=== PATIENT | female | born 1955 | race African-American/Black ===

== ENCOUNTER 2016-10-21 10:20 | Emergency (ER) | payer BC ==
[2016-10-21] MEDS ORDERED: OXYCODONE-ACETAMINOPHEN 5-325 MG TABLET PO ONE (11:08)
--- NOTE | 2016-10-21 11:50 | RADIOLOGY REPORT (SQ) ---
EXAM DESCRIPTION: HAND RIGHT 3 VIEWS COMPLETED DATE/TIME: 10/21/2016 11:38 am REASON FOR STUDY: pain COMPARISON: None. EXAM PARAMETERS: NUMBER OF VIEWS: Three views. TECHNIQUE: AP, lateral and oblique radiographic images acquired of the right hand. LIMITATIONS: None. FINDINGS: MINERALIZATION: Normal. BONES: No acute fracture or dislocation. No worrisome bone lesions. No significant osteophytes. JOINTS: No erosions. No lukasz-articular osteopenia. Chondrocalcinosis. SOFT TISSUES: No swelling. No calcifications. OTHER: No other significant finding. IMPRESSION: CHONDROCALCINOSIS. OTHERWISE UNREMARKABLE STUDY. TECHNICAL DOCUMENTATION: JOB ID: [id number] [employer] All Rights Reserved
--- NOTE | 2016-10-21 12:39 | ER Document Report ---
ED Hand/Wrist Injury - General Chief Complaint: Hand Pain Stated Complaint: RIGHT HAND/ARM PAIN Time Seen by Provider: 10/21/16 11:02 Notes: 61 yo female c/o pain, redness and swelling to right wrist x 4 days. no trauma , no break in skin. no previous similar pain. TRAVEL OUTSIDE OF THE [place] IN LAST 30 DAYS: No - HPI Injury to: Hand Onset: Just prior to arrival Where: Home Timing: Constant Quality of pain: Sharp, Throbbing Context: Swelling - Related Data Allergies/Adverse Reactions: No Known Allergies Allergy (Verified 10/21/16 10:28) Past Medical History - General Information source: Patient - Social History Smoking Status: Never Smoker Chew tobacco use (# tins/day): No Frequency of alcohol use: None Drug Abuse: None Lives with: Family Family History: Reviewed & Not Pertinent Patient has suicidal ideation: No Patient has homicidal ideation: No - Past Medical History Cardiac Medical History: Reports: Hx Hypertension - no medications Renal/ Medical History: Reports: Hx End Stage Renal Disease - S/P TRANSPLANT 2003. Denies: Hx Peritoneal Dialysis Past Surgical History: Reports: Hx Kidney (Renal Surgery) - TRANSPLANT 2003 - Immunizations Hx Diphtheria, Pertussis, Tetanus Vaccination: Yes Review of Systems - Review of Systems Constitutional: No symptoms reported EENT: No symptoms reported Cardiovascular: No symptoms reported Respiratory: No symptoms reported Gastrointestinal: No symptoms reported Genitourinary: No symptoms reported Female Genitourinary: No symptoms reported Musculoskeletal: See HPI Skin: No symptoms reported Hematologic/Lymphatic: No symptoms reported Neurological/Psychological: No symptoms reported Physical Exam - Vital signs Vitals: Temp Pulse Resp BP Pulse Ox 98.2 F 60 18 145/65 H 100 10/21/16 10:29 10/21/16 10:29 10/21/16 10:29 10/21/16 10:29 10/21/16 10:29 Interpretation: Normal - General General appearance: Appears well, Alert - HEENT Head: Normocephalic, Atraumatic Eyes: Normal Pupils: PERRL - Respiratory Respiratory status: No respiratory distress Chest status: Nontender Breath sounds: Normal Chest palpation: Normal - Cardiovascular Rhythm: Regular Heart sounds: Normal auscultation Murmur: No - Abdominal Inspection: Normal Distension: No distension Bowel sounds: Normal Tenderness: Nontender Organomegaly: No organomegaly - Back Back: Normal, Nontender - Extremities General lower extremity: Normal inspection, Nontender, Normal color, Normal ROM , Normal temperature, Normal weight bearing. No: Suraj's sign Wrist: Tender - focal pain, redness and swelling to right mid dorsal wrist. distal SMC intact - Neurological Neuro grossly intact: Yes Cognition: Normal Orientation: AAOx4 Tia Coma Scale Eye Opening: Spontaneous [place] Coma Scale Verbal: Oriented Tia Coma Scale Motor: Obeys Commands Tia Coma Scale Total: 15 Speech: Normal Motor strength normal: LUE, RUE, LLE, RLE Sensory: Normal - Psychological Associated symptoms: Normal affect, Normal mood - Skin Skin Temperature: Warm Skin Moisture: Dry Skin Color: Normal Course - Re-evaluation Re-evalutation: 10/21/16 12:37 xray negative. uric acid 7.0. results reviewed with patient. H&P c/w gout. will treat with colcrys and short Rx of pain medication. pt instructed to follow up with primary care. pt agreeable with plan and stable for discharge - Vital Signs Vital signs: Temp Pulse Resp BP Pulse Ox 98.2 F 60 18 145/65 H 100 10/21/16 10:29 10/21/16 10:29 10/21/16 10:29 10/21/16 10:29 10/21/16 10:29 Discharge - Discharge Clinical Impression: Gout of right hand Qualifiers: Gout etiology: unspecified cause Chronicity: acute Qualified Code(s): M10.9 - Gout, unspecified Condition: Stable Disposition: HOME, SELF-CARE Instructions: Gout ([facility]), Gout Diet ([facility]), Oral Narcotic Medication ([facility]), Colchicine ([facility]), Anti-Inflammatory Medication ([facility]) Additional Instructions: Your lab work and physical exam are consistant with a gout attack Take medication as prescribed and follow up with primary care for further evaluation and treatment Prescriptions: Colchicine [Colcrys 0.6 mg Tablet] 0.6 mg PO ASDIR PRN #20 tablet PRN Reason: Oxycodone HCl/Acetaminophen [Percocet 5-325 mg Tablet] 1 tab PO ASDIR PRN #25 tablet PRN Reason: Forms: Elevated Blood Pressure
[2016-10-21 12:59] VITALS: BP 130/63
== END 2016-10-21 12:55 | disposition home or self-care (01) ==
LOC: ER 10:20
DX: M10.9 Gout, unspecified (principal); M79.641 Pain in right hand; M79.601 Pain in right arm; M79.89 Other specified soft tissue disorders
CPT/HCPCS: 36415; 84550; 99284

== ENCOUNTER 2017-03-03 16:00 | Emergency (ER) | payer BC ==
--- NOTE | 2017-03-03 17:01 | ER Document Report ---
ED Medical Screen (RME) - General Chief Complaint: Abdominal Pain Stated Complaint: STOMACH PAIN Time Seen by Provider: 03/03/17 16:59 Notes: Patient says that she is feeling lightheaded. Patient has a history of a kidney transplant in 2003 and is on antirejection medications plus prednisone. She started having lower abdominal pains about 5 days ago. The pain score around into her back. She has felt constipated for the past 2-3 days. Also has a headache. Has not had a fever. No nausea or vomiting. Denies UTI symptoms. TRAVEL OUTSIDE OF THE [place] IN LAST 30 DAYS: No - Related Data Allergies/Adverse Reactions: No Known Allergies Allergy (Verified 03/03/17 16:25) Past Medical History - Social History Chew tobacco use (# tins/day): No Frequency of alcohol use: None Drug Abuse: None - Past Medical History Cardiac Medical History: Reports: Hx Hypertension - no medications Renal/ Medical History: Reports: Hx End Stage Renal Disease - S/P TRANSPLANT 2003. Denies: Hx Peritoneal Dialysis Musculoskeltal Medical History: Reports Hx Arthritis Past Surgical History: Reports: Hx Kidney (Renal Surgery) - TRANSPLANT 2003, Hx Tubal Ligation - Immunizations Hx Diphtheria, Pertussis, Tetanus Vaccination: Yes Physical Exam - Vital signs Vitals: Temp Pulse Resp BP Pulse Ox 97.8 F 63 16 174/81 H 100 03/03/17 16:25 03/03/17 16:25 03/03/17 16:25 03/03/17 16:25 03/03/17 16:25 Course - Vital Signs Vital signs: Temp Pulse Resp BP Pulse Ox 97.8 F 63 16 174/81 H 100 03/03/17 16:25 03/03/17 16:25 03/03/17 16:25 03/03/17 16:25 03/03/17 16:25
[2017-03-03 17:26] LABS: ABSOLUTE LYMPHOCYTES (AUTO) 0.6 10^3/uL (0.5-4.7); ABSOLUTE MONOCYTES (AUTO) 0.3 10^3/uL (0.1-1.4); ABSOLUTE NEUT (AUTO) 5.3 10^3/uL (1.7-8.2); BASOPHILS % (AUTO) 0.4 % (0-2); EOSINOPHILS % (AUTO) 0.3 % (0-6); HEMATOCRIT 36.2 % (36.0-47.0); HEMOGLOBIN 11.8 g/dL (12.0-15.5); HGB HCT DIFFERENCE -0.8; LYMPHOCYTES % (AUTO) 10.2 % (13-45); MEAN CORPUSCULAR HEMOGLOBIN 30.1 pg (27.0-33.4); MEAN CORPUSCULAR HGB CONC 32.7 g/dL (32.0-36.0); MEAN CORPUSCULAR VOLUME 92 fl (80-97); MONOCYTES % (AUTO) 4.7 % (3-13); RED BLOOD COUNT 3.93 10^6/uL (3.72-5.28); SEGMENTED NEUTROPHILS % (AUTO) 84.4 % (42-78); WHITE BLOOD COUNT 6.3 10^3/uL (4.0-10.5)
[2017-03-03 17:28] LABS: APPEARANCE,URINE CLEAR; BILIRUBIN,URINE NEGATIVE (NEGATIVE); GLUCOSE, URINE NEGATIVE (NEGATIVE); KETONES,URINE NEGATIVE (NEGATIVE); LEUKOCYTE ESTERASE,URINE NEGATIVE (NEGATIVE); NITRITE,URINE NEGATIVE (NEGATIVE); PROTEIN,URINE NEGATIVE (NEGATIVE); UROBILINOGEN,URINE NEGATIVE mg/dL (<2.0)
[2017-03-03 17:46] LABS: ALANINE AMINOTRANSFERASE 24 U/L (9-52); ALBUMIN 4.8 g/dL (3.5-5.0); ALKALINE PHOSPHATASE 105 U/L (38-126); ANION GAP 16 (5-19); ASPARTATE AMINO TRANSFERASE 18 U/L (14-36); BILIRUBIN,DIRECT 0.4 mg/dL (0.0-0.4); BILIRUBIN,TOTAL 0.6 mg/dL (0.2-1.3); BLOOD UREA NITROGEN 23 mg/dL (7-20); CALCIUM 11.1 mg/dL (8.4-10.2); CARBON DIOXIDE 21 mmol/L (22-30); CHLORIDE 108 mmol/L (98-107); CREATININE RESULT 1.16 mg/dL (0.52-1.25); GLUCOSE 101 mg/dL (75-110); LIPASE 96.6 U/L (23-300); POTASSIUM 4.4 mmol/L (3.6-5.0); SODIUM 145.1 mmol/L (137-145); TOTAL PROTEIN 8.5 g/dL (6.3-8.2)
--- NOTE | 2017-03-03 18:26 | ER Document Report ---
ED General - General Chief Complaint: Abdominal Pain Stated Complaint: STOMACH PAIN Time Seen by Provider: 03/03/17 16:59 Mode of Arrival: Ambulatory Information source: Patient Notes: 61-year-old female history of kidney transplant presents with complaints of constipation abdominal pain. Patient notes concern for her kidney function. She denies any fevers or chills notes she is urinating with no difficulty, she denies any burning on urination, patient states overall she feels well. Notes that she has been taking laxatives but after she has diarrhea constipation comes back. Patient has not spoken with her transplant physician regarding this Patient has been taking her medications appropriately TRAVEL OUTSIDE OF THE [place] IN LAST 30 DAYS: No - HPI Onset: Last week Onset/Duration: Intermittent, Waxing and waning Quality of pain: Cramping Severity: Mild Pain Level: 1 Associated symptoms: Other Exacerbated by: Denies Relieved by: Denies Similar symptoms previously: Yes Recently seen / treated by doctor: No - Related Data Allergies/Adverse Reactions: No Known Allergies Allergy (Verified 03/03/17 16:25) Past Medical History - Social History Smoking Status: Never Smoker Cigarette use (# per day): No Chew tobacco use (# tins/day): No Smoking Education Provided: No Frequency of alcohol use: None Drug Abuse: None Family History: Reviewed & Not Pertinent Patient has suicidal ideation: No Patient has homicidal ideation: No - Past Medical History Cardiac Medical History: Reports: Hx Hypertension - no medications Renal/ Medical History: Reports: Hx End Stage Renal Disease - S/P TRANSPLANT 2003. Denies: Hx Peritoneal Dialysis Musculoskeltal Medical History: Reports Hx Arthritis Past Surgical History: Reports: Hx Kidney (Renal Surgery) - TRANSPLANT 2003, Hx Tubal Ligation - Immunizations Hx Diphtheria, Pertussis, Tetanus Vaccination: Yes Review of Systems - Review of Systems Notes: REVIEW OF SYSTEMS: CONSTITUTIONAL : Denies fever, chills, or sweats. Denies recent illness. EENT: Denies eye, ear, throat, or mouth pain or symptoms. Denies nasal or sinus congestion or discharge. Denies throat, tongue, or mouth swelling or difficulty swallowing. CARDIOVASCULAR: Denies chest pain. Denies palpitations or racing or irregular heart beat. Denies ankle edema. RESPIRATORY: Denies cough, cold, or chest congestion. Denies shortness of breath, difficulty breathing, or wheezing. GASTROINTESTINAL: Admits abdominal pain constipation GENITOURINARY: Denies difficulty urinating, painful urination, burning, frequency, blood in urine, or discharge. FEMALE GENITOURINARY: Denies vaginal bleeding, heavy or abnormal periods, irregular periods. Denies vaginal discharge or odor. MUSCULOSKELETAL: Denies back or neck pain or stiffness. Denies joint pain or swelling. SKIN: Denies rash, lesions or sores. HEMATOLOGIC : Denies easy bruising or bleeding. LYMPHATIC: Denies swollen, enlarged glands. NEUROLOGICAL: Denies confusion or altered mental status. Denies passing out or loss of consciousness. Denies dizziness or lightheadedness. Denies headache. Denies weakness or paralysis or loss of use of either side. Denies problems with gait or speech. Denies sensory loss, numbness, or tingling. Denies seizures. PSYCHIATRIC: Denies anxiety or stress. Denies depression, suicidal ideation, or homicidal ideation. ALL OTHER SYSTEMS REVIEWED AND NEGATIVE. PHYSICAL EXAMINATION: GENERAL: Well-appearing, well-nourished and in no acute distress. HEAD: Atraumatic, normocephalic. EYES: Pupils equal round and reactive to light, extraocular movements intact, conjunctiva are normal. ENT: Nares patent, oropharynx clear without exudates. Moist mucous membranes. NECK: Normal range of motion, supple without lymphadenopathy LUNGS: Breath sounds clear to auscultation bilaterally and equal. No wheezes rales or rhonchi. HEART: Regular rate and rhythm without murmurs ABDOMEN: Soft, nontender, nondistended abdomen. No guarding, no rebound. No masses appreciated. Female : deferred Musculoskeletal: Normal range of motion, no pitting or edema. No cyanosis. NEUROLOGICAL: Cranial nerves grossly intact. Normal speech, normal gait. Normal sensory, motor exams PSYCH: Normal mood, normal affect. SKIN: Warm, Dry, normal turgor, no rashes or lesions noted. Dictation was performed using [employer] voice recognition software Physical Exam - Vital signs Vitals: Temp Pulse Resp BP Pulse Ox 97.8 F 63 16 174/81 H 100 03/03/17 16:25 03/03/17 16:25 03/03/17 16:25 03/03/17 16:25 03/03/17 16:25 Course - Re-evaluation Re-evalutation: 03/04/17 02:35 Lab work imaging noted no significant abnormality, there was mild BUN elevation however creatinine is normal, I did give copies of results to the patient so she can take it to her physician so he can know exactly what the function is at this time. Otherwise appears to be secondary to constipation I did place the patient on MiraLAX and give very strict return precautions regarding fever worsening abdominal pain or any other concerns After performing a Medical Screening Examination, I estimate there is LOW risk for ACUTE APPENDICITIS, BOWEL OBSTRUCTION, ACUTE CHOLECYSTITIS, PERFORATED DIVERTICULITIS, INCARCERATED HERNIA, PANCREATITIS, PELVIC INFLAMMATORY DISEASE, PERFORATED ULCER, ECTOPIC , or TUBO-OVARIAN ABSCESS, thus I consider the discharge disposition reasonable. Also, there is no evidence or peritonitis , sepsis, or toxicity. I have reevaluated this patient multiple times and no significant life threatening changes are noted. The patient and I have discussed the diagnosis and risks, and we agree with discharging home with close follow-up with the understanding that symptoms and presentations can change. We also discussed returning to the Emergency Department immediately if new or worsening symptoms occur. We have discussed the symptoms which are most concerning (e.g., bloody stool, fever, changing or worsening pain, vomiting) that necessitate immediate return. - Vital Signs Vital signs: Temp Pulse Resp BP Pulse Ox 97.9 F 63 20 160/88 H 99 03/03/17 18:46 03/03/17 18:46 03/03/17 18:46 03/03/17 18:46 03/03/17 18:46 - Laboratory Result Diagrams: 03/03/17 17:10 03/03/17 17:10 Laboratory results interpreted by me: 03/03/17 03/03/17 03/03/17 17:10 17:10 17:10 Hgb 11.8 L RDW 15.0 H Seg Neutrophils % 84.4 H Lymphocytes % 10.2 L Sodium 145.1 H Chloride 108 H Carbon Dioxide 21 L BUN 23 H Est GFR ( Amer) 58 L Est GFR (Non-Af Amer) 48 L Calcium 11.1 H Total Protein 8.5 H Urine Blood SMALL H Discharge - Discharge Clinical Impression: Kidney transplant recipient HTN (hypertension) Qualifiers: Hypertension type: essential hypertension Qualified Code(s): I10 - Essential ( primary) hypertension Constipation Qualifiers: Constipation type: other constipation type Qualified Code(s): K59.09 - Other constipation Condition: Stable Disposition: HOME, SELF-CARE Additional Instructions: Please give your physician a copy of our lab results so he may see our results for today and compare to your previous labs Return immediately if there are any other concerns Prescriptions: Polyethylene Glycol 3350 [Miralax Powder 17 gm/Packet] 1 packet PO DAILY #7 pkg
[2017-03-03 18:47] VITALS: BP 160/88
== END 2017-03-03 18:48 | disposition home or self-care (01) ==
LOC: ER 16:00
DX: K59.00 Constipation, unspecified (principal); I10 Essential (primary) hypertension; R10.9 Unspecified abdominal pain; Z94.0 Kidney transplant status; Z98.51 Tubal ligation status
CPT/HCPCS: 36415; 80053; 81001; 83690; 85025; 99284

== ENCOUNTER 2018-01-09 09:06 | Emergency (ER) | payer SELFPAY ==
[2018-01-09 09:14] VITALS: BP 154/83
[2018-01-09] MEDS ORDERED: ONDANSETRON HCL INJ/PF 4 MG/2 ML SDV IV ONE (09:53)
[2018-01-09] MEDS ORDERED: NORMAL SALINE 1000 ML 1,000 ML IV ONE (09:53)
[2018-01-09] MEDS ORDERED: DICYCLOMINE HCL 20 MG TABLET PO ONE (09:55)
--- NOTE | 2018-01-09 09:58 | ER Document Report ---
ED GI/ - General Chief Complaint: Abdominal Pain Stated Complaint: ABDOMINAL PAIN, HEADACHE Time Seen by Provider: 01/09/18 09:48 Mode of Arrival: Ambulatory Information source: Patient Notes: Chief complaint: abdominal pain: History of complain:( obtained from----patient) 62 years old female presents today with since yesterday had a brown loose stool x2 today and another 3 stools which were brown in color crampy abdominal pain and nauseous and vomited couple of times. Clear fluid. No fever chills or other constitutional symptoms. She did not have a bowel movement prior to that for more than 3 days. She is a renal transplant patient. Onset: Gradual Duration: One day Severity: Mild Quality: Crampy Context: Possible constipation Exacerbating factor and relieving factors: REVIEW OF SYSTEMS: CONSTITUTIONAL : Denies fever, chills, or sweats. Denies recent illness. EENT: Denies eye, ear, throat, or mouth pain or symptoms. Denies nasal or sinus congestion or discharge. Denies throat, tongue, or mouth swelling or difficulty swallowing. CARDIOVASCULAR: Denies chest pain. Denies palpitations or racing or irregular heart beat. Denies ankle edema. RESPIRATORY: Denies cough, cold, or chest congestion. Denies shortness of breath, difficulty breathing, or wheezing. GASTROINTESTINAL: Denies distention. Denies nausea, vomiting, or diarrhea. Denies blood in vomitus, stools, or per rectum. Denies black, tarry stools. Denies constipation. GENITOURINARY: Denies difficulty urinating, painful urination, burning, frequency, blood in urine, or discharge. FEMALE GENITOURINARY: Denies vaginal bleeding, heavy or abnormal periods, irregular periods. Denies vaginal discharge or odor. MUSCULOSKELETAL: Denies back or neck pain or stiffness. Denies joint pain or swelling. SKIN: Denies rash, lesions or sores. HEMATOLOGIC : Denies easy bruising or bleeding. LYMPHATIC: Denies swollen, enlarged glands. NEUROLOGICAL: Denies confusion or altered mental status. Denies passing out or loss of consciousness. Denies dizziness or lightheadedness. Denies headache. Denies weakness or paralysis or loss of use of either side. Denies problems with gait or speech. Denies sensory loss, numbness, or tingling. Denies seizures. PSYCHIATRIC: Denies anxiety or stress. Denies depression, suicidal ideation, or homicidal ideation. ALL OTHER SYSTEMS REVIEWED AND NEGATIVE. PHYSICAL EXAMINATION: GENERAL: Well-appearing, well-nourished and in no acute distress. HEAD: Atraumatic, normocephalic. EYES: Pupils equal round and reactive to light, extraocular movements intact, conjunctiva are normal. ENT: Nares patent, oropharynx clear without exudates. Moist mucous membranes. NECK: Normal range of motion, supple without lymphadenopathy LUNGS: Breath sounds clear to auscultation bilaterally and equal. No wheezes rales or rhonchi. HEART: Regular rate and rhythm without murmurs ABDOMEN: Soft, nontender, nondistended abdomen. No guarding, no rebound. No masses appreciated. Female : deferred Musculoskeletal: Normal range of motion, no pitting or edema. No cyanosis. NEUROLOGICAL: Cranial nerves grossly intact. Normal speech, normal gait. Normal sensory, motor exams PSYCH: Normal mood, normal affect. SKIN: Warm, Dry, normal turgor, no rashes or lesions noted. Dictation was performed using [employer] voice recognition software TRAVEL OUTSIDE OF THE [place] IN LAST 30 DAYS: No - HPI Notes: 01/09/18 09:57 sharp - Related Data Allergies/Adverse Reactions: No Known Allergies Allergy (Verified 01/09/18 09:09) Past Medical History - General Information source: Patient - Social History Smoking Status: Never Smoker Cigarette use (# per day): No Chew tobacco use (# tins/day): No Smoking Education Provided: No Frequency of alcohol use: Rare Drug Abuse: None Lives with: Family Family History: Reviewed & Not Pertinent - Past Medical History Cardiac Medical History: Reports: Hx Hypertension - no medications Renal/ Medical History: Reports: Hx End Stage Renal Disease - S/P TRANSPLANT 2003. Denies: Hx Peritoneal Dialysis Musculoskeletal Medical History: Reports Hx Arthritis Past Surgical History: Reports: Hx Kidney (Renal Surgery) - TRANSPLANT 2003, Hx Tubal Ligation - Immunizations Hx Diphtheria, Pertussis, Tetanus Vaccination: Yes Review of Systems - Review of Systems Notes: ayad Physical Exam - Vital signs Vitals: Temp Pulse Resp BP Pulse Ox 97.9 F 69 14 154/83 H 98 01/09/18 09:13 01/09/18 09:13 01/09/18 09:13 01/09/18 09:13 01/09/18 09:13 - Notes Notes: sharp Course - Vital Signs Vital signs: Temp Pulse Resp BP Pulse Ox 97.9 F 69 14 154/83 H 98 01/09/18 09:13 01/09/18 09:13 01/09/18 09:13 01/09/18 09:13 01/09/18 09:13 - Laboratory Result Diagrams: 01/09/18 10:07 01/09/18 10:07 Laboratory results interpreted by me: 01/09/18 01/09/18 10:07 10:07 RDW 14.5 H Seg Neutrophils % 87.3 H Lymphocytes % 6.3 L Absolute Neutrophils 9.0 H Sodium 145.7 H BUN 38 H Creatinine 1.72 H Est GFR ( Amer) 37 L Est GFR (Non-Af Amer) 30 L Calcium 11.7 H Total Protein 9.8 H - Diagnostic Test Radiology reviewed: Reports reviewed - Radiologist reported as an nonspecific gas pattern Discharge - Discharge Clinical Impression: Frequent loose stools Qualifiers: Diarrhea type: unspecified type Qualified Code(s): R19.7 - Diarrhea, unspecified Retained feces Qualifiers: Constipation type: slow transit constipation Qualified Code(s): K59.01 - Slow transit constipation Condition: Fair Disposition: HOME, SELF-CARE Instructions: Abdominal Pain ([facility]), Constipation ([facility]) Prescriptions: Ondansetron [Zofran Odt 4 mg Tablet] 1 - 2 tab PO Q4HP PRN #10 tab.rapdis PRN Reason: Lactulose 20 gm PO BID #120 ml
[2018-01-09 10:21] LABS: ABSOLUTE LYMPHOCYTES (AUTO) 0.6 10^3/uL (0.5-4.7); ABSOLUTE MONOCYTES (AUTO) 0.6 10^3/uL (0.1-1.4); BASOPHILS % (AUTO) 0.2 % (0-2); EOSINOPHILS % (AUTO) 0.2 % (0-6); HEMATOCRIT 36.3 % (36.0-47.0); LYMPHOCYTES % (AUTO) 6.3 % (13-45); MEAN CORPUSCULAR VOLUME 91 fl (80-97); PLATELET COUNT 272 10^3/uL (150-450); RED BLOOD COUNT 3.99 10^6/uL (3.72-5.28); RED CELL DISTRIBUTION WIDTH 14.5 % (11.5-14.0); SEGMENTED NEUTROPHILS % (AUTO) 87.3 % (42-78); TOTAL CELLS COUNTED % (AUTO) 100 %; WHITE BLOOD COUNT 10.3 10^3/uL (4.0-10.5)
[2018-01-09 10:38] LABS: ALANINE AMINOTRANSFERASE 19 U/L (9-52); ALBUMIN 4.6 g/dL (3.5-5.0); ALKALINE PHOSPHATASE 96 U/L (38-126); ANION GAP 14 (5-19); ASPARTATE AMINO TRANSFERASE 20 U/L (14-36); BILIRUBIN,DIRECT 0.3 mg/dL (0.0-0.4); BILIRUBIN,TOTAL 0.6 mg/dL (0.2-1.3); BLOOD UREA NITROGEN 38 mg/dL (7-20); CALCIUM 11.7 mg/dL (8.4-10.2); CARBON DIOXIDE 25 mmol/L (22-30); CHLORIDE 107 mmol/L (98-107); GLUCOSE 99 mg/dL (75-110); LIPASE 85.2 U/L (23-300); POTASSIUM 3.6 mmol/L (3.6-5.0); SODIUM 145.7 mmol/L (137-145); TOTAL PROTEIN 9.8 g/dL (6.3-8.2)
--- NOTE | 2018-01-09 10:38 | RADIOLOGY REPORT (SQ) ---
EXAM DESCRIPTION: KUB/ABDOMEN (SINGLE VIEW) COMPLETED DATE/TIME: 01/09/2018 10:26 am REASON FOR STUDY: Abdominal pain COMPARISON: None. NUMBER OF VIEWS: One view. TECHNIQUE: Supine radiographic image of the abdomen acquired. LIMITATIONS: None. FINDINGS: BOWEL GAS PATTERN: Nonspecific bowel-gas pattern with scattered gas noted primarily and sm all bowel and stomach. Minimal colon gas. Findings of relatively gasless abdomen correlate with a h istory of vomiting and diarrhea. CALCIFICATIONS: No suspicious calcifications. SOFT TISSUES: There is evidence of soft tissue density in the pelvis which correlates with uterus an d bladder HARDWARE: None in the abdomen. BONES: No acute fracture. No worrisome bone lesions. OTHER: Surgical clips right hemipelvis secondary to renal transplant. IMPRESSION: Nonspecific bowel-gas pattern. TECHNICAL DOCUMENTATION: JOB ID: [id number] 2010 [employer]- All Rights Reserved Reading location - IP/workstation name: [email or web address]
== END 2018-01-09 12:43 | disposition home or self-care (01) ==
LOC: ER 09:06
DX: K59.01 Slow transit constipation (principal); R19.7 Diarrhea, unspecified; R10.9 Unspecified abdominal pain; R11.2 Nausea with vomiting, unspecified; Z94.0 Kidney transplant status; Z98.51 Tubal ligation status
CPT/HCPCS: 99284; 96361; 96374; 36415; 83690; 85025; 80053; 74018; J3490; J2405; J7030

== ENCOUNTER → 2019-11-02 | Outpatient (CLI) | payer BC ==
[2019-11-02 11:48] VITALS: BP 174/90
--- NOTE | 2019-11-02 11:48 | ER RDC ASSESSMENT REPORT ---
Intake - In the Last 14 days Have you traveled outside [place]?: No Have you been in close contact with someone CONFIRMED: Yes Worked in Healthcare?: No - Symptoms Subjective Fever(Miles feverish): No Chills: No Muscule Aches: No Runny Nose: No Sore Throat: No Cough (New or worsening chronic cough): No Shortness of breath: No Nausea or Vomiting: No Headache: No Abdominal Pain: No Diarrhea(3 or more loose stools in last 24 hours): No - Do you have any of the following Chronic lung disease: Asthma or emphysema or COPD: No Cystic Fibrosis: No Diabetes: No High Blood Pressure: Yes Cardiovascular Disease: Yes Chronic Kidney Disease: Yes Chronic Kidney Disease Comment: renal transplant 17 yr ago Chronic Liver Disease: No Chronic blood disorder like Sickle Cell Disease: No Weak immune system due to disease or medication: No Neurologic condition that limits movement: No Developmental delay - Moderate to Severe: No Recent (within past 2 weeks) or current : No Morbid Obesity (>100 pounds over ideal weight): No - Objective Temperature: 97.0 F Pulse Rate: 72 Respiratory Rate: 18 Blood Pressure: 174/90 - recheck 158/82 O2 Sat by Pulse Oximetry: 99 Objective: Given above, testing performed: covid Disposition: Home; Selfcare General - General Chief Complaint: Other Time Seen by Provider: 11/02/19 11:40 Mode of Arrival: Ambulatory Information source: Patient - [facility] Notes: Patient presents to clinic for COVID-19 testing after coming in close contact with another COVID 19 positive individual. Patient is asymptomatic. They deny any cough, shortness of breath, fever, chills, muscle aches, rhinorrhea, sore t hroat, nausea or vomiting, headache, abdominal pain or diarrhea. Patient has no acute medical concerns. - Related Data Allergies/Adverse Reactions: No Known Allergies Allergy (Verified 01/09/18 09:09) Home Medications: Hydralazine, enalapril, antirejection meds Past Medical History - General Information source: Patient - Social History Smoking Status: Never Smoker Family History: Reviewed & Not Pertinent - Past Medical History Cardiac Medical History: Reports: Hx Hypertension - no medications Pulmonary Medical History: Reports: None EENT Medical History: Reports: None Neurological Medical History: Reports: None Endocrine Medical History: Reports: None Renal/ Medical History: Reports: Hx End Stage Renal Disease - S/P TRANSPLANT 2003, Other - Renal transplant. Denies: Hx Peritoneal Dialysis Malignancy Medical History: Reports: None GI Medical History: Reports: None Musculoskeletal Medical History: Reports Hx Arthritis Skin Medical History: Reports None Psychiatric Medical History: Reports: None Traumatic Medical History: Reports: None Infectious Medical History: Reports: None Past Surgical History: Reports: Hx Kidney (Renal Surgery) - TRANSPLANT 2003, Hx Tubal Ligation Physical Exam - General General appearance: Appears well, Alert In distress: None Notes: PHYSICAL EXAMINATION: GENERAL: Well-appearing and in no acute distress. HEAD: Atraumatic, normocephalic. EYES: sclera anicteric, conjunctiva are normal. ENT: nares patent. Moist mucous membranes. NECK: Normal range of motion, supple without lymphadenopathy. LUNGS: No increased work of breathing. Lung sounds CTAB and equal. No wheezes rales or rhonchi. HEART: Regular rate and rhythm without murmurs. ABDOMEN: Soft, nontender, normal bowel sounds, no guarding. EXTREMITIES: Normal range of motion, no pitting edema. No cyanosis. NEUROLOGICAL: A&O x 3. Normal speech. PSYCH: Normal mood, normal affect. SKIN: Warm, Dry, normal turgor, no rashes or lesions noted Patient Education/Counseling Counseling/Education: Patient presents for COVID 19 testing after close exposure to another person who has tested positive for COVID 19. Patient is asymptomatic at this time. Patient does not have emergency worrying symptoms such as difficulty breathing, shortness of breath, chest pain, pressure, confusion or cyanosis. Patient appears suitable for discharge as vital signs are stable and patient is nontoxic in appearance. Good return precautions have been discussed with patient, patien t verbalized understanding and is agreeable with discharge plan of care at this time. Guidance for worsening S/SX: As a person under investigation for Covid 19, the [place] department of Health and Human Services, division of public health advises you to adhere to the following guidance until your test results are reported to you. If your test result is positive, you will receive additional information from your provider and your local health department at that time. Remain at home until you are cleared by the health provider or public health authorities. Keep a log of visitors to your home, notify any visitors to your home of your isolation status. If you plan to move to a new address or leave the county, notify the local health department in your County. Call your doctor or seek care if you have an urgent medical need. Before seeking medical care, call ahead to get instructions from the provider before arriving at the medical office clinic or hospital. Notify them that you are being tested for the virus that causes Covid 19 so that arrangements can be made, as necessary, to prevent transmission to others in the healthcare setting. Next, notify the local health department in your county. If a medical emergency arises and you need to call 911, inform the first responders that you are being tested for the virus that causes Covid 19. Next, notify the local health department in your county. RDC Discharge - Discharge Clinical Impression: Encounter for screening laboratory testing for COVID-19 virus in asymptomatic patient Condition: Good Disposition: Home; Selfcare
== END ==
LOC: RDC 10:51
PROVIDERS: ATTEND Registered Nurse
DX: Z20.828 Contact with and (suspected) exposure to other viral communicable diseases (principal)
CPT/HCPCS: 87635; C9803; 99201; 99211

== ENCOUNTER 2019-12-14 19:53 | Emergency (ER) | payer BC ==
--- NOTE | 2019-12-14 20:17 | ER Document Report ---
ED Medical Screen (RME) - General Chief Complaint: Mouth Problem Stated Complaint: SHAKING,FACIAL DROOP Time Seen by Provider: 12/14/19 20:05 Primary Care Provider: LUIS GARZA PA-C [Primary Care Provider] - Follow up as needed Mode of Arrival: Wheelchair Information source: Patient Notes: 64-year-old female presented to ED for complaint of feeling like she is talking funny and the face feels like her mouth feels funny. She had a partial thyroidectomy on December 02. Vital signs are stable. She is speaking in full sentences. There is no facial droop. There is no palmar drift. She has equal strength in both legs. She is very anxious. I did speak with Dr. hernandez he stated that she get a head and soft tissue neck CT as well as CBC and chemistry. She states she did have a kidney transplant and only has 1 kidney. We will not use contrast. I have greeted and performed a rapid initial assessment of this patient. A comprehensive ED assessment and evaluation of the patient, analysis of test results and completion of medical decision making process will be conducted by an additional ED providers. TRAVEL OUTSIDE OF THE [place] IN LAST 30 DAYS: No - Related Data Allergies/Adverse Reactions: No Known Allergies Allergy (Verified 01/09/18 09:09) Past Medical History - Social History Frequency of alcohol use: None Drug Abuse: None - Past Medical History Cardiac Medical History: Reports: Hx Hypertension - no medications Renal/ Medical History: Reports: Hx End Stage Renal Disease - S/P TRANSPLANT 2003. Denies: Hx Peritoneal Dialysis Musculoskeltal Medical History: Reports Hx Arthritis Past Surgical History: Reports: Hx Kidney (Renal Surgery) - TRANSPLANT 2003, Hx Tubal Ligation - Immunizations Hx Diphtheria, Pertussis, Tetanus Vaccination: Yes Physical Exam - Vital signs Vitals: Temp Pulse Resp BP Pulse Ox 98.4 F 76 20 162/84 H 100 12/14/19 19:57 12/14/19 19:57 12/14/19 19:57 12/14/19 19:57 12/14/19 19:57 Course - Vital Signs Vital signs: Temp Pulse Resp BP Pulse Ox 98.4 F 76 20 162/84 H 100 12/14/19 19:57 12/14/19 19:57 12/14/19 19:57 12/14/19 19:57 12/14/19 19:57 Doctor's Discharge - Discharge Referrals: LUIS GARZA PA-C [Primary Care Provider] - Follow up as needed
[2019-12-14 20:54] LABS: HEMATOCRIT 26.6 % (36.0-47.0); HEMOGLOBIN 8.7 g/dL (12.0-15.5); MEAN CORPUSCULAR HEMOGLOBIN 30.7 pg (27.0-33.4); MEAN CORPUSCULAR HGB CONC 32.7 g/dL (32.0-36.0); MEAN CORPUSCULAR VOLUME 94 fl (80-97); PLATELET COUNT 261 10^3/uL (150-450); RED BLOOD COUNT 2.84 10^6/uL (3.72-5.28); WHITE BLOOD COUNT 4.8 10^3/uL (4.0-10.5)
[2019-12-14 21:12] LABS: ALBUMIN 4.1 g/dL (3.5-5.0); ALKALINE PHOSPHATASE 91 U/L (38-126); ANION GAP 12 (5-19); ASPARTATE AMINO TRANSFERASE 16 U/L (14-36); BILIRUBIN,DIRECT 0.3 mg/dL (0.0-0.4); BILIRUBIN,TOTAL 0.4 mg/dL (0.2-1.3); BLOOD UREA NITROGEN 28 mg/dL (7-20); CARBON DIOXIDE 25 mmol/L (22-30); CHLORIDE 105 mmol/L (98-107); GLUCOSE 95 mg/dL (75-110); POTASSIUM 4.7 mmol/L (3.6-5.0); TOTAL PROTEIN 7.7 g/dL (6.3-8.2)
[2019-12-14 21:18] LABS: ABSOLUTE LYMPHOCYTES# (MANUAL) 0.7 10^3/uL (0.5-4.7); ABSOLUTE MONOCYTES # (MANUAL) 0.4 10^3/uL (0.1-1.4); BAND NEUTROPHILS % (MANUAL) 5 % (3-5); BASOPHILS % (MANUAL) 0 % (0-2); EOSINOPHILS % (MANUAL) 0 % (0-6); LYMPHOCYTES % (MANUAL) 14 % (13-45); METAMYELOCYTES % (MANUAL) 2 % (0-1); MONOCYTES % (MANUAL) 9 % (3-13); SEGMENTED NEUTROPHILS % (MAN) 70 % (42-78); TOTAL CELLS COUNTED 100
[2019-12-14 21:19] LABS: ANISOCYTOSIS SLIGHT; OVALOCYTES SLIGHT; PLATELET COMMENT ADEQUATE; POIKILOCYTOSIS SLIGHT; POLYCHROMASIA SLIGHT
[2019-12-14 21:22] LABS: CALCIUM 6.4 mg/dL (8.4-10.2)
--- NOTE | 2019-12-14 21:24 | RADIOLOGY REPORT (SQ) ---
CT HEAD WITHOUT IV CONTRAST HISTORY: Headache recent surgery. COMPARISON: None. TECHNIQUE: CT scan of the brain was performed without IV contrast. This exam was performed according to our departmental dose-optimization program, which includes automated exposure control, adjustment of the mA and/or kV according to patient size and/or use of iterative reconstruction technique. FINDINGS: There are scattered areas of hypoattenuation within the periventricular white matter, which likely represent chronic microvascular ischemia. No evidence of acute infarction, intracranial hemorrhage, extra-axial fluid collection, or midline shift. There is sinus mucosal disease in the bilateral frontal, ethmoid, and maxillary sinuses. No air-fluid levels are seen. The mastoids are also clear. No depressed skull fracture. IMPRESSION: 1. No acute intracranial findings. 2. Chronic microvascular ischemic disease. 3. Sites mucosal inflammatory disease.
--- NOTE | 2019-12-14 21:28 | RADIOLOGY REPORT (SQ) ---
EXAM DESCRIPTION: CT NECK WITHOUT IV CONTRAST COMPLETED DATE/TME: 12/14/2019 20:14 CLINICAL HISTORY: 64 years, Female, Headache recent surgery partial thyroidectomy COMPARISON: None. TECHNIQUE: Noncontrast CT of the neck was acquired. Coronal and sagittal reformations were created. Images stored on PACS. All CT scanners at this facility use dose modulation, iterative reconstruction, and/or weight based dosing when appropriate to reduce radiation dose to as low as reasonably achievable (ALARA). [facility]: Dose Right [facility]: CareDose [facility]: Dose Right [facility]: Teradose 4D [facility]: [employer] LIMITATIONS: None. FINDINGS: Limited evaluation of the chest reveals no suspicious finding. There are postsurgical changes of partial resection of the right thyroid lobe. Otherwise, the remainder of the thyroid gland appears normal in attenuation. Hypopharynx, oropharynx, and nasopharynx show no suspicious abnormality. Globes and orbits show no suspicious abnormality. Limited assessment of the brain parenchyma shows no suspicious finding. Bilateral parotid glands and left submandibular gland appear normal. The right submandibular gland appears asymmetrically smaller than the contralateral side. This is presumably developmental. No suspicious deep cervical lymphadenopathy is appreciated. Minimal calcifications are evident about the bilateral carotid bulbs. Bone windows show no destructive osseous lesions. However, there is mild mucosal thickening about both maxillary antra with additional mild opacity in the ethmoidal air cells and near complete opacification of the frontal sinuses. IMPRESSION: No acute abnormality within the neck. Mild pansinus disease. TECHNICAL DOCUMENTATION: Quality ID # 436: Final reports with documentation of one or more dose reduction techniques (e.g., Automated exposure control, adjustment of the mA and/or kV according to patient size, use of iterative reconstruction technique) copyright 2011 [employer]- All Rights Reserved
--- NOTE | 2019-12-14 23:27 | ER Document Report ---
ED General - General Chief Complaint: Mouth Problem Stated Complaint: SHAKING,FACIAL DROOP Time Seen by Provider: 12/14/19 20:05 Primary Care Provider: LUIS GARZA PA-C [Primary Care Provider] - Follow up as needed Mode of Arrival: Wheelchair TRAVEL OUTSIDE OF THE [place] IN LAST 30 DAYS: No - HPI Notes: 64-year-old female presents with cramping and numbness, mostly to her extremities. She also feels a sensation around her face and mouth, feels that she is talking funny. Patient underwent partial thyroidectomy on December 02 at [facility], she states that she believes this was for an overactive thyroid, she is not currently on any medication. She denies abdominal pain, no nausea/vomiting/diarrhea. Denies fever, chest pain or shortness of breath. - Related Data Allergies/Adverse Reactions: No Known Allergies Allergy (Verified 01/09/18 09:09) Past Medical History - General Information source: Patient - Social History Smoking Status: Never Smoker Frequency of alcohol use: None Drug Abuse: None Family History: Reviewed & Not Pertinent Patient has homicidal ideation: No - Past Medical History Cardiac Medical History: Reports: Hx Hypertension - no medications Renal/ Medical History: Reports: Hx End Stage Renal Disease - S/P TRANSPLANT 2003. Denies: Hx Peritoneal Dialysis Musculoskeletal Medical History: Reports Hx Arthritis Past Surgical History: Reports: Hx Kidney (Renal Surgery) - TRANSPLANT 2003, Hx Tubal Ligation - Immunizations Hx Diphtheria, Pertussis, Tetanus Vaccination: Yes Review of Systems - Review of Systems Constitutional: denies: Fever EENT: No symptoms reported Cardiovascular: denies: Chest pain Respiratory: denies: Short of breath Gastrointestinal: denies: Abdominal pain, Diarrhea, Nausea, Vomiting Genitourinary: denies: Dysuria Musculoskeletal: See HPI Skin: No symptoms reported Neurological/Psychological: Tingling Physical Exam - Vital signs Vitals: Temp Pulse Resp BP Pulse Ox 98.4 F 76 20 162/84 H 100 12/14/19 19:57 12/14/19 19:57 12/14/19 19:57 12/14/19 19:57 12/14/19 19:57 - General General appearance: Appears well, Alert In distress: None - HEENT Head: Normocephalic, Atraumatic Extraocular movements intact: Yes Pupils: PERRL Neck: Other - Surgical scar present, appears to be well-healing, no erythema or tenderness - Respiratory Breath sounds: Normal - Cardiovascular Rhythm: Regular Heart sounds: Normal auscultation Normal capillary refill: Yes - Abdominal Distension: No distension Tenderness: Nontender - Extremities General upper extremity: Normal ROM General lower extremity: Normal ROM. No: Edema - Neurological Neuro grossly intact: Yes Cognition: Normal Orientation: AAOx4 Notes: Face is symmetric and speech is clear Positive chvostek's sign Strength is 5/5 in the upper extremities, strength is 5/5 in lower extremities, sensation is grossly intact to all extremities - Psychological Associated symptoms: Normal affect - Skin Skin Temperature: Warm Course - Re-evaluation Re-evalutation: 64-year-old female status post partial thyroidectomy almost 2 weeks ago here for sensation of cramping. On exam she is nontoxic-appearing, afebrile. No gross neuro deficits, I do not think her presentation is consistent with stroke at this time. She had a laboratory evaluation from the [facility] which showed a calcium of 6. She is symptomatic with this and has physical exam findings. I will start with IV and oral calcium replacement, 1g calglu and 1g tums. Check PTH and vitamin D as well. Additionally through triage had CT head and CT soft tissue neck, both are negative for acute finding. 12/15/19 00:02 Given that she is recently post op, I have gone through the [facility] transfer center to have a page out to the [facility] surgery team to discuss patient. 12/15/19 00:[address] Washington Godinez from [facility], he has agreed to see the patient in the emergency department to further evaluate. I then discussed with the ED att ending Dr. Mims, she has accepted the patient in transfer. Patient and her son were updated at bedside. - Vital Signs Vital signs: Temp Pulse Resp BP Pulse Ox 98.9 F 76 18 166/86 H 96 12/14/19 23:31 12/14/19 19:57 12/15/19 00:03 12/15/19 00:03 12/15/19 00:03 - Laboratory Result Diagrams: 12/14/19 20:35 12/14/19 20:35 Laboratory results interpreted by me: 12/14/19 12/14/19 20:35 20:35 RBC 2.84 L Hgb 8.7 L Hct 26.6 L Metamyelocytes % 2 H BUN 28 H Creatinine 1.92 H Est GFR ( Amer) 32 L Est GFR (MDRD) Non-Af 26 L Calcium 6.4 L* - Diagnostic Test Radiology reviewed: Image reviewed, Reports reviewed - EKG Interpretation by Me Additional EKG results interpreted by me: EKG is interpreted by me. Sinus rhythm, rate 68. Slightly long QRS 126. QTc within normal limits. No ST elevation. Discharge - Discharge Clinical Impression: Hypocalcemia, Status post thyroidectomy, Renal transplant, status post Condition: Stable Disposition: [facility] Referrals: LUIS GARZA PA-C [Primary Care Provider] - Follow up as needed
[2019-12-14] MEDS ORDERED: CALCIUM GLUCONATE 1000 MG/10 ML INJ IV ONE (23:31)
[2019-12-14] MEDS ORDERED: CALCIUM CARBONATE 500 MG TAB.CHEW PO ONE (23:31)
[2019-12-15] MEDS ORDERED: CALCIUM GLUCONATE 1000 MG/10 ML INJ IV ONE (01:45)
[2019-12-15 03:32] VITALS: BP 173/86
[2019-12-15 03:33] LABS: ANION GAP 11 (5-19); BLOOD UREA NITROGEN 29 mg/dL (7-20); CARBON DIOXIDE 26 mmol/L (22-30); CHLORIDE 105 mmol/L (98-107); GLUCOSE 93 mg/dL (75-110); POTASSIUM 3.9 mmol/L (3.6-5.0)
[2019-12-15 04:00] LABS: CALCIUM 6.5 mg/dL (8.4-10.2)
--- NOTE | 2019-12-15 08:52 | EKG REPORT ---
SEVERITY:- ABNORMAL ECG - SINUS RHYTHM NONSPECIFIC INTRAVENTRICULAR CONDUCTION DELAY LEFT VENTRICULAR HYPERTROPHY ANTERIOR Q WAVES, POSSIBLY DUE TO LVH : Confirmed by: Zaheer Parker MD 15-Dec-2019 08:51:22
== END 2019-12-15 03:32 | disposition short-term general hospital (02) ==
LOC: ER 19:53
DX: E83.51 Hypocalcemia (principal); E89.0 Postprocedural hypothyroidism; Z94.0 Kidney transplant status; R29.810 Facial weakness; I10 Essential (primary) hypertension; Z98.890 Other specified postprocedural states
CPT/HCPCS: 93005; 99285; 96374; 36415; 85025; 80048; 80053; 82652; 82306; 83970; 70450; 70490; 93010; J0610

== ENCOUNTER 2020-02-16 13:19 | Emergency (ER) | payer BC ==
[2020-02-16] MEDS ORDERED: DEXAMETHASONE SOD PHOSPHATE INJ 4 MG/1 ML VIAL IM ONE (15:39)
[2020-02-16] MEDS ORDERED: HYDROCODONE/ACETAMINOPHEN 5-325 MG TABLET PO ONE (15:40)
--- NOTE | 2020-02-16 16:21 | ER Document Report ---
ED Medical Screen (RME) - General Chief Complaint: Back Pain Stated Complaint: BACK PAIN Time Seen by Provider: 02/16/20 15:23 Primary Care Provider: LUIS GARZA PA-C [Primary Care Provider] - Follow up as needed TRAVEL OUTSIDE OF THE [place] IN LAST 30 DAYS: No - HPI Notes: 02/16/20 15:40 64-year-old recipient of kidney transplant female presents to the emergency room today with lower back pain and weakness for the last 2 weeks it has become progressively worse. Reports pain is 5/5. Patient states she typically ambulates without any issues. Denies any fall or trauma. Denies any bowel or bladder dysfunction. Denies any fevers or chills. Has tried [id number] Tylenol and ibuprofen without relief. Patient denies radiation of her pain down her legs. I have greeted and performed a rapid initial assessment of this patient. A comprehensive ED assessment and evaluation of the patient, analysis of test results and completion of the medical decision making process will be conducted by additional ED providers. PHYSICAL EXAMINATION: GENERAL: Chronically ill malnourished and in no acute distress. CV: s1, s2 regular LUNGS: No respiratory distress Musculoskeletal: Normal range of motion. Patient in wheelchair. Required myself and registered nurse to try to assist patient out of wheelchair, patient unable to stand on her own due to weakness. Tenderness when palpated lumbar spine. No CVA tenderness appreciated bilaterally. NEUROLOGICAL: Normal speech, unable to stand on own. Weak SKIN: Warm, Dry, normal turgor, no rashes or lesions noted. - Related Data Allergies/Adverse Reactions: No Known Allergies Allergy (Verified 01/09/18 09:09) Past Medical History - Social History Frequency of alcohol use: None Drug Abuse: None - Past Medical History Cardiac Medical History: Reports: Hx Hypertension - no medications Renal/ Medical History: Reports: Hx End Stage Renal Disease - S/P TRANSPLANT 2003. Denies: Hx Peritoneal Dialysis Musculoskeltal Medical History: Reports Hx Arthritis Past Surgical History: Reports: Hx Kidney (Renal Surgery) - TRANSPLANT 2003, Hx Thyroid Surgery, Hx Tubal Ligation - Immunizations Hx Diphtheria, Pertussis, Tetanus Vaccination: Yes Physical Exam - Vital signs Vitals: Temp Pulse Resp BP Pulse Ox 98.2 F 81 16 127/67 H 100 02/16/20 13:35 02/16/20 13:35 02/16/20 13:35 02/16/20 13:35 02/16/20 13:35 Course - Vital Signs Vital signs: Temp Pulse Resp BP Pulse Ox 98.2 F 81 16 127/67 H 100 02/16/20 13:35 02/16/20 13:35 02/16/20 13:35 02/16/20 13:35 02/16/20 13:35 Doctor's Discharge - Discharge Referrals: LUIS GARZA PA-C [Primary Care Provider] - Follow up as needed
--- NOTE | 2020-02-16 16:23 | RADIOLOGY REPORT (SQ) ---
EXAM DESCRIPTION: L SPINE WHOLE IMAGES COMPLETED DATE/TIME: 02/16/2020 4:02 pm REASON FOR STUDY: lbp with weakness, unble to bear weight COMPARISON: None. NUMBER OF VIEWS: Five views including obliques. TECHNIQUE: AP, lateral, oblique, and sacral radiographic images acquired of the lumbar spine. LIMITATIONS: None. FINDINGS: MINERALIZATION: Normal. SEGMENTATION: Normal. No transitional anatomy. ALIGNMENT: Mild convex left scoliosis. VERTEBRAE: Maintained height. No fracture or worrisome bone lesion. DISCS: Preserved height. No significant osteophytes or end plate irregularity. POSTERIOR ELEMENTS: Pedicles and facets are intact. No pars defect or posterior arch defects. HARDWARE: None in the spine. PARASPINAL SOFT TISSUES: Normal. PELVIS: Intact as visualized. No fractures or worrisome bone lesions. SI joints intact. OTHER: No other significant finding. IMPRESSION: Mild scoliosis. TECHNICAL DOCUMENTATION: JOB ID: [id number] 2010 [employer]- All Rights Reserved Reading location - IP/workstation name: [email or web address]
--- NOTE | 2020-02-16 21:27 | ER Document Report ---
ED Neck/Back Problem - General Stated Complaint: BACK PAIN Time Seen by Provider: 02/16/20 15:23 Primary Care Provider: LUIS GARZA PA-C [Primary Care Provider] - Follow up as needed Mode of Arrival: Ambulatory Information source: Patient Notes: 02/16/20 15:25 - ED Nursing Note by JOÃO BLASGAIL Accroseanne Num: [id number] : 1955 Patient Age: 64 patient arrives to ED with c/o lower back pain that started x2 weeks prior. The patient denies any known injury or urinary symptoms. Pain worsens with movement. NAD, breathing is even and unlabored, speaking in complete and clear sentences. Initialized on 02/16/20 15:25 - END OF NOTE ED Medical Screen (Karly Perez) - General Chief Complaint: Back Pain Stated Complaint: BACK PAIN Time Seen by Provider: 02/16/20 15:23 Primary Care Provider: LUIS GARZA PA-C [Primary Care Provider] - Follow up as needed TRAVEL OUTSIDE OF THE U[place]. IN LAST 30 DAYS: No - HPI Notes: 02/16/20 15:40 64-year-old recipient of kidney transplant female presents to the emergency room today with lower back pain and weakness for the last 2 weeks it has become progressively worse. Reports pain is 5/5. Patient states she typically ambulates without any issues. Denies any fall or trauma. Denies any bowel or bladder dysfunction. Denies any fevers or chills. Has tried [id number] Tylenol and ibuprofen without relief. Patient denies radiation of her pain down her legs. MY NOTES 64 year old black female arrives with chief complaint of having 2-week history of low back pain that has been progressively getting worse. She denies any referral down her legs or in her bladder or pelvis. X-rays today reveal scoliosis in her lumbar area per radiology. Patient denies any heavy lifting bending or twisting problems. TRAVEL OUTSIDE OF THE [place] IN LAST 30 DAYS: No - HPI Patient complains to provider of: Lower back Onset: Last week Where: Home Onset: Sudden Timing: Worse Quality of pain: Achy Severity: Moderate Pain Level: 3 Recent injury: No Associated symptoms: Lower back pain Exacerbated by: Movement of trunk Similar symptoms previously: No Recently seen / treated by doctor: No - Related Data Allergies/Adverse Reactions: No Known Allergies Allergy (Verified 01/09/18 09:09) Past Medical History - Social History Smoking Status: Unknown if Ever Smoked Frequency of alcohol use: None Drug Abuse: None Family History: Reviewed & Not Pertinent - Past Medical History Cardiac Medical History: Reports: Hx Hypertension - no medications Renal/ Medical History: Reports: Hx End Stage Renal Disease - S/P TRANSPLANT 2003. Denies: Hx Peritoneal Dialysis Musculoskeletal Medical History: Reports Hx Arthritis Past Surgical History: Reports: Hx Kidney (Renal Surgery) - TRANSPLANT 2003, Hx Thyroid Surgery, Hx Tubal Ligation - Immunizations Hx Diphtheria, Pertussis, Tetanus Vaccination: Yes Review of Systems - Review of Systems Constitutional: See HPI, Malaise EENT: No symptoms reported Cardiovascular: No symptoms reported Respiratory: No symptoms reported Gastrointestinal: No symptoms reported Genitourinary: No symptoms reported Female Genitourinary: No symptoms reported Musculoskeletal: See HPI, Back pain Skin: No symptoms reported Hematologic/Lymphatic: No symptoms reported Neurological/Psychological: No symptoms reported -: Yes All other systems reviewed and negative Physical Exam - Vital signs Vitals: Temp Pulse Resp BP Pulse Ox 98.2 F 81 16 127/67 H 100 02/16/20 13:35 02/16/20 13:35 02/16/20 13:35 02/16/20 13:35 02/16/20 13:35 Interpretation: Normal - General General appearance: Appears well, Alert - HEENT Head: Normocephalic, Atraumatic Eyes: Normal Pupils: PERRL - Respiratory Respiratory status: No respiratory distress Chest status: Nontender Breath sounds: Normal Chest palpation: Normal - Cardiovascular Rhythm: Regular Heart sounds: Normal auscultation Murmur: No - Abdominal Inspection: Normal Distension: No distension Bowel sounds: Normal Tenderness: Nontender Organomegaly: No organomegaly - Rectal Hemorrhoids: Other - deferred - Genitourinary [place] exam: Other - deferred - Back Back: Tender - Extremities General upper extremity: Normal inspection, Nontender, Normal color, Normal ROM, Normal temperature General lower extremity: Normal inspection, Nontender, Normal color, Normal ROM, Normal temperature, Normal weight bearing. No: Suraj's sign - Neurological Neuro grossly intact: Yes Cognition: Normal Orientation: AAOx4 Tia Coma Scale Eye Opening: Spontaneous [place] Coma Scale Verbal: Oriented [place] Coma Scale Motor: Obeys Commands [place] Coma Scale Total: 15 Speech: Normal Motor strength normal: LUE, RUE, LLE, RLE Sensory: Normal - Psychological Associated symptoms: Normal affect, Normal mood - Skin Skin Temperature: Warm Skin Moisture: Dry Skin Color: Normal Course - Vital Signs Vital signs: Temp Pulse Resp BP Pulse Ox 99.1 F 83 16 107/79 100 02/16/20 20:01 02/16/20 20:01 02/16/20 20:01 02/16/20 20:01 02/16/20 20:01 - Laboratory Laboratory results interpreted by me: 02/16/20 22:00 Urine Protein 30 H - Diagnostic Test Radiology reviewed: Reports reviewed Discharge - Discharge Clinical Impression: Low back pain Qualifiers: Chronicity: acute Back pain laterality: midline Sciatica presence: without s ciatica Qualified Code(s): M54.5 - Low back pain Scoliosis deformity of spine Qualifiers: Scoliosis type: unspecified scoliosis Spinal region: lumbar Qualified Code(s): M41.9 - Scoliosis, unspecified Condition: Stable Disposition: HOME, SELF-CARE Additional Instructions: Follow-up with Dr. George Gleason orthopedics; call him tomorrow for appointment to be seen in his office. Take medicines as directed encourage fluids and avoid bending twisting or lifting until seen by Dr. Gleason and/or your personal doctor. Prescriptions: Etodolac [Lodine] 400 mg PO BID #14 tablet Hydrocodone/Acetaminophen [[place] 5-325 mg Tabs (6 Tab/ER Disp)] 6 tab PO TID PRN #1 dspk PRN Reason: Pain Scale Of 1 Referrals: LUIS GARZA PA-C [Primary Care Provider] - Follow up as needed
[2020-02-16] MEDS ORDERED: MORPHINE SULFATE 10 MG/ML INJ IM ONE (21:42)
[2020-02-16 22:27] LABS: APPEARANCE,URINE SLIGHTLY-CLOUDY; BILIRUBIN,URINE NEGATIVE (NEGATIVE); COLOR,URINE YELLOW; GLUCOSE, URINE NEGATIVE (NEGATIVE); KETONES,URINE NEGATIVE (NEGATIVE); LEUKOCYTE ESTERASE,URINE NEGATIVE (NEGATIVE); NITRITE,URINE NEGATIVE (NEGATIVE); PROTEIN,URINE 30 mg/dL (NEGATIVE); URINE SPECIFIC GRAVITY 1.015; UROBILINOGEN,URINE NEGATIVE mg/dL (<2.0)
[2020-02-16] MEDS ORDERED: HYDROCODONE/ACETAMINOPHEN 5-325 MG (6 TAB/ER DISP) PO PRN (23:38)
[2020-02-17 00:40] VITALS: BP 157/99
--- OUTSIDE RECORDS SUMMARY | 2020-02-18 17:45 | XMS REPORT ---
:1955 [facility] Address [facility] [address] [place] [address] Care Team Providers Name Role Phone Unavailable Unavailable Unavailable Allergies, Adverse Reactions, Alerts This patient has no known allergies or adverse reactions. Medications This patient has no known medications. Problems Condition Condition Condition Status Onset Resolution Last Treatin g Comments Name Details Category Date Date Treatment Clinician Date Not on file Not on file [id number] Procedures This patient has no known procedures. Results This patient has no known results. Encounters Start End Encounter Admission Attending Care Care Encounter ID Date/Time Date/Time Type Type Clinicians Facility Department 2019-11-01 2019-11-01 Outpatient [facility] TO [facility] [id number] 00:00:00 00:00:00 Plan of Treatment Planned Activity Planned Date Details Comments Future Scheduled Test [code = ] Future Scheduled Test [code = ] Future Scheduled Test [code = ] Future Scheduled Test [code = ] Future Scheduled Test [code = ] Future Scheduled Test [code = ] Future Scheduled Test [code = ] Social History This patient has no known social history. Vital Signs This patient has no known vital signs.
== END 2020-02-17 00:37 | disposition home or self-care (01) ==
LOC: ER 13:19
DX: M54.5 Low back pain (principal); M41.9 Scoliosis, unspecified; D72.829 Elevated white blood cell count, unspecified; Z94.0 Kidney transplant status; Z79.899 Other long term (current) drug therapy; I10 Essential (primary) hypertension
CPT/HCPCS: 99284; 96372; 81001; 72110; J2270

== ENCOUNTER 2020-02-17 10:09 | Emergency (ER) | payer BC ==
[2020-02-17] MEDS ORDERED: LIDOCAINE 5% (700 MG) TRANSDERMAL ADH..PATCH TP ONE (11:04)
[2020-02-17] MEDS ORDERED: DEXAMETHASONE SOD PHOS INJ 10 MG/1 ML VIAL IM ONE (11:04)
--- NOTE | 2020-02-17 11:13 | ER Document Report ---
ED Neck/Back Problem - General Chief Complaint: Low Back Pain Stated Complaint: BACK PAIN Time Seen by Provider: 02/17/20 10:57 Primary Care Provider: LUIS GARZA PA-C [Primary Care Provider] - Follow up as needed Mode of Arrival: Ambulatory Information source: Patient Notes: 64-year-old female presented to ED for low back pain. She was seen yesterday given morphine and sent home with a [place] dispense pack. At this time she states the pain is actually worse than yesterday. She states she cannot get up out of the chair. I did attempt to get her out of the chair and she cannot bear weight on her legs. I have spoken with Dr. Gilbert he stated that she go ahead and order the blood urine of the back. These have been ordered. I have greeted and performed a rapid initial assessment of this patient. A comprehensive ED assessment and evaluation of the patient, analysis of test results and completion of medical decision making process will be conducted by an additional ED providers. TRAVEL OUTSIDE OF THE [place] IN LAST 30 DAYS: No - Related Data Allergies/Adverse Reactions: No Known Allergies Allergy (Verified 01/09/18 09:09) Home Medications: hydrocortisone. nitro. oscal. amlodipine. enalapril. hydralazine. prednisone Past Medical History - Social History Smoking Status: Unknown if Ever Smoked Chew tobacco use (# tins/day): No Frequency of alcohol use: None Drug Abuse: None Family History: Reviewed & Not Pertinent Patient has homicidal ideation: No - Past Medical History Cardiac Medical History: Reports: Hx Hypertension - no medications Renal/ Medical History: Reports: Hx End Stage Renal Disease - S/P TRANSPLANT 2003. Denies: Hx Peritoneal Dialysis Musculoskeletal Medical History: Reports Hx Arthritis Past Surgical History: Reports: Hx Kidney (Renal Surgery) - TRANSPLANT 2003, Hx Thyroid Surgery, Hx Tubal Ligation - Immunizations Hx Diphtheria, Pertussis, Tetanus Vaccination: Yes Physical Exam - Vital signs Vitals: Temp Pulse Resp BP Pulse Ox 99.4 F 89 16 123/74 99 02/17/20 10:23 02/17/20 10:23 02/17/20 10:23 02/17/20 10:23 02/17/20 10:23 Course - Vital Signs Vital signs: Temp Pulse Resp BP Pulse Ox 99.4 F 89 16 123/74 99 02/17/20 10:58 02/17/20 10:23 02/17/20 10:23 02/17/20 10:23 02/17/20 10:23 Discharge - Discharge Referrals: LUIS GARZA PA-C [Primary Care Provider] - Follow up as needed
--- NOTE | 2020-02-17 11:14 | ER Document Report ---
ED Medical Screen (RME) - General Chief Complaint: Low Back Pain Stated Complaint: BACK PAIN Time Seen by Provider: 02/17/20 10:57 Primary Care Provider: LUIS GARZA PA-C [Primary Care Provider] - Follow up as needed Mode of Arrival: Ambulatory Notes: 64-year-old female presented to ED for low back pain. She was seen yesterday given morphine and sent home with a [place] dispense pack. At this time she states the pain is actually worse than yesterday. She states she cannot get up out of the chair. I did attempt to get her out of the chair and she cannot bear weight on her legs. I have spoken with Dr. Gilbert he stated that she go ahead and order the blood urine of the back. These have been ordered. I have greeted and performed a rapid initial assessment of this patient. A comprehensive ED assessment and evaluation of the patient, analysis of test results and completion of medical decision making process will be conducted by an additional ED providers. TRAVEL OUTSIDE OF THE [place] IN LAST 30 DAYS: No - Related Data Allergies/Adverse Reactions: No Known Allergies Allergy (Verified 01/09/18 09:09) Home Medications: hydrocortisone. nitro. oscal. amlodipine. enalapril. hydralazine. prednisone Past Medical History - Social History Chew tobacco use (# tins/day): No Frequency of alcohol use: None Drug Abuse: None - Past Medical History Cardiac Medical History: Reports: Hx Hypertension - no medications Renal/ Medical History: Reports: Hx End Stage Renal Disease - S/P TRANSPLANT 2003. Denies: Hx Peritoneal Dialysis Musculoskeltal Medical History: Reports Hx Arthritis Past Surgical History: Reports: Hx Kidney (Renal Surgery) - TRANSPLANT 2003, Hx Thyroid Surgery, Hx Tubal Ligation - Immunizations Hx Diphtheria, Pertussis, Tetanus Vaccination: Yes Physical Exam - Vital signs Vitals: Temp Pulse Resp BP Pulse Ox 99.4 F 89 16 123/74 99 02/17/20 10:23 02/17/20 10:23 02/17/20 10:23 02/17/20 10:23 02/17/20 10:23 Course - Vital Signs Vital signs: Temp Pulse Resp BP Pulse Ox 99.4 F 89 16 123/74 99 02/17/20 10:58 02/17/20 10:23 02/17/20 10:23 02/17/20 10:23 02/17/20 10:23 Doctor's Discharge - Discharge Referrals: LUIS GARZA PA-C [Primary Care Provider] - Follow up as needed
--- NOTE | 2020-02-17 13:26 | RADIOLOGY REPORT (SQ) ---
EXAM DESCRIPTION: MRI LUMBAR SPINE WITHOUT IMAGES COMPLETED DATE/TIME: 02/17/2020 1:14 pm REASON FOR STUDY: No back pain unable to walk COMPARISON: None. TECHNIQUE: Sagittal and Axial imaging includes T1, T2, STIR and gradient echo sequences. Coronal T2/ HASTE imaging. LIMITATIONS: None. FINDINGS: VISUALIZED UPPER ABDOMEN: Limited evaluation. No acute or suspicious findings suggested. SEGMENTATION: No transitional anatomy. The lowest well-developed disc space is labeled L5-S1. ALIGNMENT: Exaggerated lumbar lordosis. VERTEBRAE: Intact. BONE MARROW: Normal. No marrow replacement or reactive changes. DISC SIGNAL: Loss of normal water signal throughout the lumbar spine consistent with desiccation. POSTERIOR ELEMENTS: Generally intact. No pars defect evident. HARDWARE: None in the spine. CORD AND CONUS: Normal in size and signal intensity. Conus at the appropriate level. SOFT TISSUES: No aortic aneurysm seen. No bulky retroperitoneal adenopathy or mass. No paraspinal mas s or fluid. L1-L2: No significant spinal stenosis or exit foraminal stenosis. L2-L3: Annular disc bulging. Facet arthropathy. This combination results in mild central stenosis. No significant foraminal narrowing. L3-L4: Broad-based annular disc bulging. Bilateral facet arthropathy. This results in mild central stenosis and bilateral foraminal stenosis. L4-L5: Mild annular bulging. Bilateral facet arthropathy. No significant central stenosis. Mild as ymmetric narrowing of the right neural foramina. L5-S1: Bilateral facet arthropathy. No central stenosis or significant foraminal narrowing. LOWER THORACIC: Incompletely imaged. No stenosis seen. SACRUM: Visualized upper sacrum intact. OTHER: No other significant findings. IMPRESSION: Mild multilevel spondylosis. Mild central stenosis at L2-L3. No foraminal narrowing. Mild central stenosis L3-L4 with bilateral foraminal stenosis. Mild asymmetric narrowing of the right neural foramina at L4-L5. Multilevel facet arthropathy. TECHNICAL DOCUMENTATION: JOB ID: [id number] 2010 [employer]- All Rights Reserved Reading location - IP/workstation name: [email or web address]
[2020-02-17 13:51] LABS: HEMATOCRIT 28.1 % (36.0-47.0); HEMOGLOBIN 9.4 g/dL (12.0-15.5); MEAN CORPUSCULAR HEMOGLOBIN 30.7 pg (27.0-33.4); MEAN CORPUSCULAR HGB CONC 33.6 g/dL (32.0-36.0); MEAN CORPUSCULAR VOLUME 92 fl (80-97); PLATELET COUNT 226 10^3/uL (150-450); RED BLOOD COUNT 3.07 10^6/uL (3.72-5.28); RED CELL DISTRIBUTION WIDTH 16.1 % (11.5-14.0); WHITE BLOOD COUNT 16.2 10^3/uL (4.0-10.5)
[2020-02-17 14:10] LABS: ALBUMIN 3.9 g/dL (3.5-5.0); ALKALINE PHOSPHATASE 74 U/L (38-126); ANION GAP 16 (5-19); ASPARTATE AMINO TRANSFERASE 16 U/L (14-36); BILIRUBIN,DIRECT 0.3 mg/dL (0.0-0.4); BILIRUBIN,TOTAL 0.9 mg/dL (0.2-1.3); BLOOD UREA NITROGEN 33 mg/dL (7-20); CARBON DIOXIDE 23 mmol/L (22-30); CHLORIDE 99 mmol/L (98-107); GLUCOSE 118 mg/dL (75-110); POTASSIUM 4.4 mmol/L (3.6-5.0); TOTAL PROTEIN 7.7 g/dL (6.3-8.2)
[2020-02-17 14:19] LABS: ABSOLUTE LYMPHOCYTES# (MANUAL) 0.6 10^3/uL (0.5-4.7); ABSOLUTE MONOCYTES # (MANUAL) 0.2 10^3/uL (0.1-1.4); BAND NEUTROPHILS % (MANUAL) 1 % (3-5); BASOPHILS % (MANUAL) 0 % (0-2); EOSINOPHILS % (MANUAL) 0 % (0-6); LYMPHOCYTES % (MANUAL) 4 % (13-45); MONOCYTES % (MANUAL) 1 % (3-13); SEGMENTED NEUTROPHILS % (MAN) 94 % (42-78); TOTAL CELLS COUNTED 100
[2020-02-17 14:21] LABS: ANISOCYTOSIS 1+
[2020-02-17 14:22] LABS: OVALOCYTES SLIGHT; PLATELET COMMENT ADEQUATE; POIKILOCYTOSIS SLIGHT; POLYCHROMASIA SLIGHT
--- NOTE | 2020-02-17 14:32 | ER Document Report ---
ED General - General Chief Complaint: Low Back Pain Stated Complaint: BACK PAIN Time Seen by Provider: 02/17/20 10:57 Primary Care Provider: LUIS GARZA PA-C [COMMUNITY BASED STAFF] - Follow up as needed Mode of Arrival: Ambulatory Notes: HPI: 64-year-old female with past medical history as recorded including kidney transplant presents today with around 2 weeks of some lower back pain. She denies any fevers, vomiting, dysuria, or incontinence. She denies any radiation down her legs. She states it is painful when she stands up straight and walks. She denies any mid thoracic or cervical spine pain. No abdominal pain or chest pain. Patient was seen here yesterday with unremarkable plain films and provided Vicodin for pain relief. Patient presents today stating she has linda nued pain to her lower back. No change in the above story of symptomatology. MRI was ordered in triage. ROS: See HPI All other review of systems reviewed and otherwise negative Reviewed vital signs and nursing note as charted by RN. PHYSICAL EXAM: CONSTITUTIONAL: Alert and oriented and responds appropriately to questions. Well-appearing; well-nourished HEAD: Normocephalic; atraumatic NECK: Supple without meningismus; non-tender; no cervical lymphadenopathy, no masses CARD: Regular rate and rhythm; no murmurs; symmetric distal pulses RESP: Normal chest excursion without splinting or tachypnea; breath sounds clear and equal bilaterally ABD/GI: Normal bowel sounds; non-distended; soft, nontender to deep palpation of all 4 quadrants of the abdomen BACK: The back appears normal with no midline swelling, erythema, induration, or fluctuance EXT: Normal ROM in all joints; non-tender to palpation; no edema SKIN: We did well the patient to the side to evaluate the perirectal and sacral region showing no obvious acute lesions NEURO: CN 2-12 intact; 5/5 bilateral upper and lower extremity strength with sensation intact to light touch; reflexes appear normal bilaterally patellar regions. No obvious muscle wasting of the lower extremities PSYCH: The patient's mood and manner are appropriate. Grooming and personal hygiene are appropriate. TRAVEL OUTSIDE OF THE [place] IN LAST 30 DAYS: No - Related Data Allergies/Adverse Reactions: No Known Allergies Allergy (Verified 01/09/18 09:09) Home Medications: hydrocortisone. nitro. oscal. amlodipine. enalapril. hydralazine. prednisone Past Medical History - Social History Smoking Status: Unknown if Ever Smoked Chew tobacco use (# tins/day): No Frequency of alcohol use: None Drug Abuse: None Family History: Reviewed & Not Pertinent Patient has homicidal ideation: No - Past Medical History Cardiac Medical History: Reports: Hx Hypertension - no medications Renal/ Medical History: Reports: Hx End Stage Renal Disease - S/P TRANSPLANT 2003. Denies: Hx Peritoneal Dialysis Musculoskeletal Medical History: Reports Hx Arthritis Past Surgical History: Reports: Hx Kidney (Renal Surgery) - TRANSPLANT 2003, Hx Thyroid Surgery, Hx Tubal Ligation - Immunizations Hx Diphtheria, Pertussis, Tetanus Vaccination: Yes Physical Exam - Vital signs Vitals: Temp Pulse Resp BP Pulse Ox 99.4 F 89 16 123/74 99 02/17/20 10:23 02/17/20 10:23 02/17/20 10:23 02/17/20 10:23 02/17/20 10:23 Course - Re-evaluation Re-evalutation: Given the above history and physical, labs, catheterized urine analysis, and imaging including an MRI was ordered. Would like to assess for the possibility of spinal cord compression, urinary tract infection, with dehydration. Given the lack of any fever with the exam as above I do believe discitis, epidural abscess, and osteomyelitis to be unlikely. 02/17/20 14:31 Labs and imaging as recorded. No real change in exam. White blood cell count is elevated. Creatinine is actually slightly better than previous. Catheterized urine analysis is pending. 02/17/20 15:55 CT scan of the abdomen and pelvis without contrast as recorded. I had a long discussion with the patient once again. She still denies any headache, sore throat, cough, or shortness of breath. Patient was given Decadron for her back pain upon arrival. This could explain some of the elevated white blood cell count. I did call the party coordinator and they state that the patient can be seen at the end of this week or early next week. I have explained strict return precautions. I have called the son with the patient's permission and explained my disposition. - Vital Signs Vital signs: Temp Pulse Resp BP Pulse Ox 99.4 F 89 16 123/74 99 02/17/20 10:58 02/17/20 10:23 02/17/20 10:23 02/17/20 10:23 02/17/20 10:23 - Laboratory Result Diagrams: 02/17/20 13:32 02/17/20 13:32 Laboratory results interpreted by me: 02/17/20 02/17/20 02/17/20 13:32 13:32 14:20 WBC 16.2 H RBC 3.07 L Hgb 9.4 L Hct 28.1 L RDW 16.1 H Seg Neuts % (Manual) 94 H Band Neutrophils % 1 L Lymphocytes % (Manual) 4 L Monocytes % (Manual) 1 L Abs Neuts (Manual) 15.4 H BUN 33 H Creatinine 1.59 H Est GFR ( Amer) 40 L Est GFR (MDRD) Non-Af 33 L Glucose 118 H Calcium 8.0 L Urine Protein 30 H Discharge - Discharge Clinical Impression: Low back pain Qualifiers: Chronicity: acute Back pain laterality: unspecified Sciatica presence: without sciatica Qualified Code(s): M54.5 - Low back pain Leukocytosis Qualifiers: Leukocytosis type: unspecified Qualified Code(s): D72.829 - Elevated white blood cell count, unspecified Condition: Good Disposition: HOME, SELF-CARE Additional Instructions: Come back with any increased pain, change in location or quality of pain, abdominal pain, fever, vomiting, inability urinate, cough or shortness of breath, or any other acute problems. Please make sure that she call the transplant center tomorrow and tell them you in the emergency department and you were told to follow-up early next week by the party coordinator. Please also follow-up with your primary care physician and the orthopedic surgeon that we have provided. Referrals: LUIS GARZA PA-C [COMMUNITY BASED STAFF] - Follow up as needed BELEM LEDEZMA JR, DO [ACTIVE PROVISIONAL STAFF] - Follow up as needed
[2020-02-17 14:51] LABS: APPEARANCE,URINE CLEAR; BILIRUBIN,URINE NEGATIVE (NEGATIVE); COLOR,URINE YELLOW; GLUCOSE, URINE NEGATIVE (NEGATIVE); KETONES,URINE NEGATIVE (NEGATIVE); LEUKOCYTE ESTERASE,URINE NEGATIVE (NEGATIVE); NITRITE,URINE NEGATIVE (NEGATIVE); PROTEIN,URINE 30 mg/dL (NEGATIVE); URINE SPECIFIC GRAVITY 1.011; UROBILINOGEN,URINE NEGATIVE mg/dL (<2.0)
--- NOTE | 2020-02-17 15:47 | RADIOLOGY REPORT (SQ) ---
EXAM DESCRIPTION: CT ABD/PELVIS NO ORAL OR IV IMAGES COMPLETED DATE/TIME: 02/17/2020 3:13 pm REASON FOR STUDY: 37; leukocytosis, back pain, kidney transplant COMPARISON: None. TECHNIQUE: CT scan of the abdomen and pelvis performed without intravenous or oral contrast. Images reviewed with lung, soft tissue, and bone windows. Reconstructed coronal and sagittal MPR images revi ewed. All images stored on PACS. All CT scanners at this facility use dose modulation, iterative reconstruction, and/or weight based d osing when appropriate to reduce radiation dose to as low as reasonably achievable (ALARA). [facility]: Dose Right [facility]: CareDose [facility]: Dose Right [facility]: Teradose 4D [facility]: Smart Noknoker RADIATION DOSE: CT Rad equipment meets quality standard of care and radiation dose reduction techniq ues were employed. CTDIvol: 5.4 mGy. DLP: 299 mGy-cm.mGy. LIMITATIONS: None. FINDINGS: LOWER CHEST: There is high attenuating material in the right lower lobe possibly from prio r aspiration. Less likely previous asbestosis exposure. There is a minimal bibasilar airspace disea se most consistent with atelectasis. NON-CONTRASTED LIVER, SPLEEN, ADRENALS: Evaluation limited by lack of IV contrast. No identified sign ificant masses. PANCREAS: No masses. No peripancreatic inflammatory changes. GALLBLADDER: Mild gallbladder distention. No stones or surrounding inflammation. RIGHT KIDNEY AND URETER: Atrophic right kidney. LEFT KIDNEY AND URETER: Atrophic left kidney. AORTA AND RETROPERITONEUM: No aneurysm. No retroperitoneal masses or adenopathy. BOWEL AND PERITONEAL CAVITY: No masses or inflammatory change. Moderate constipation. APPENDIX: Not visualized. PELVIS, BLADDER, AND ABDOMINAL WALL:Atrophic uterus. Distended bladder. Right-sided transplanted pe lvic kidney. No hydronephrosis. No surrounding inflammation. BONES: No significant findings. OTHER: No other significant finding. IMPRESSION: Transplanted kidney in the right pelvis. No hydronephrosis. [place] kidneys are small a nd atrophic. Moderate constipation. Bibasilar airspace disease most consistent with atelectasis. High attenuation in the right base may represent prior aspiration of contrast or could represent prior asbestosis exposure. COMMENT: Quality ID # [id number]: Final reports with documentation of one or more dose reduction techniques (e.g., Automated exposure control, adjustment of the mA and/or kV according to patient size, use of iterative reconstruction technique) TECHNICAL DOCUMENTATION: JOB ID: [id number] 2010 [employer]- All Rights Reserved Reading location - IP/workstation name: [email or web address]
[2020-02-17] MEDS ORDERED: MORPHINE SULFATE 10 MG/ML INJ IV ONE (16:28)
[2020-02-17 18:16] VITALS: BP 121/63
--- OUTSIDE RECORDS SUMMARY | 2020-02-19 14:29 | XMS REPORT ---
:1955 [facility] Address [facility] [address] [place] [address] Care Team Providers Name Role Phone Unavailable Unavailable Unavailable Allergies, Adverse Reactions, Alerts This patient has no known allergies or adverse reactions. Medications This patient has no known medications. Problems Condition Condition Condition Status Onset Resolution Last Treatin g Comments Name Details Category Date Date Treatment Clinician Date Not on file Not on file [id number] Procedures This patient has no known procedures. Results This patient has no known results. Encounters Start End Encounter Admission Attending Care Care Encounter ID Date/Time Date/Time Type Type Clinicians Facility Department 2019-11-01 2019-11-01 Outpatient [facility] [id number] 00:00:00 00:00:00 Plan of Treatment Planned [...]
== END 2020-02-17 17:30 | disposition home or self-care (01) ==
LOC: ER 10:09
DX: M47.816 Spondylosis without myelopathy or radiculopathy, lumbar region (principal); M48.061 Spinal stenosis, lumbar region without neurogenic claudication; D72.829 Elevated white blood cell count, unspecified; J98.4 Other disorders of lung; K59.00 Constipation, unspecified; N26.1 Atrophy of kidney (terminal); I10 Essential (primary) hypertension; M19.90 Unspecified osteoarthritis, unspecified site; Z94.0 Kidney transplant status; Z79.899 Other long term (current) drug therapy; Z79.52 Long term (current) use of systemic steroids
CPT/HCPCS: 99285; 96374; 36415; 87040; 87086; 85025; 87077; 80053; 81001; 87150 ×26; 72148; 74176; J2270

== ENCOUNTER 2020-04-13 10:31 | Emergency (ER) | payer BC ==
[2020-04-13] MEDS ORDERED: ETOMIDATE INJ/PF 20 MG/10 ML SDV IV ONE (11:09)
[2020-04-13] MEDS ORDERED: LORAZEPAM INJ 2 MG/1 ML VIAL IV ONE ×2 (11:11→13:22)
[2020-04-13] MEDS ORDERED: SUCCINYLCHOLINE CHLORIDE INJ 200 MG/10 ML VIAL IV ONE (11:11)
[2020-04-13] MEDS ORDERED: VECURONIUM BROMIDE INJ 10 MG VIAL IV ONE ×2 (11:12→13:23)
[2020-04-13] MEDS ORDERED: HYDROMORPHONE HCL INJ/PF 2 MG/ML AMPULE IV ONE ×2 (11:12→13:22)
[2020-04-13] MEDS ORDERED: NORMAL SALINE 1000 ML 1,000 ML IV ONE ×2 (11:14→14:05)
[2020-04-13 11:35] LABS: INTERNATIONAL RATION (INR) 1.08; PROTHROMBIN TIME 14.2 SEC (11.4-15.4)
[2020-04-13 11:51] LABS: HEMATOCRIT 29.5 % (36.0-47.0); HEMOGLOBIN 9.8 g/dL (12.0-15.5); MEAN CORPUSCULAR HEMOGLOBIN 32.5 pg (27.0-33.4); MEAN CORPUSCULAR HGB CONC 33.3 g/dL (32.0-36.0); MEAN CORPUSCULAR VOLUME 98 fl (80-97); PLATELET COUNT 230 10^3/uL (150-450); RED BLOOD COUNT 3.02 10^6/uL (3.72-5.28); RED CELL DISTRIBUTION WIDTH 19.7 % (11.5-14.0); WHITE BLOOD COUNT 9.7 10^3/uL (4.0-10.5)
[2020-04-13 11:52] LABS: ARTERIAL BLOOD FIO2 100%; ARTERIAL BLOOD H2CO3 1.23 mmol/L (1.05-1.35); ARTERIAL BLOOD HCO3 25.6 mmol/L (20-24); ARTERIAL BLOOD O2 SATURATION 93.8 % (94-98); ARTERIAL BLOOD PCO2 40.9 mmHg (35-45); ARTERIAL BLOOD PH 7.42 (7.35-7.45); ARTERIAL BLOOD TOTAL CO2 26.9 mmol/L (21-25)
[2020-04-13 12:00] LABS: ALBUMIN 2.8 g/dL (3.5-5.0); ALKALINE PHOSPHATASE 75 U/L (38-126); ANION GAP 10 (5-19); ASPARTATE AMINO TRANSFERASE 38 U/L (14-36); BILIRUBIN,DIRECT 0.5 mg/dL (0.0-0.4); BILIRUBIN,TOTAL 0.9 mg/dL (0.2-1.3); BLOOD UREA NITROGEN 40 mg/dL (7-20); CALCIUM 7.8 mg/dL (8.4-10.2); CARBON DIOXIDE 25 mmol/L (22-30); CHLORIDE 104 mmol/L (98-107); GLUCOSE 72 mg/dL (75-110); POTASSIUM 4.1 mmol/L (3.6-5.0); TOTAL PROTEIN 5.7 g/dL (6.3-8.2)
[2020-04-13 12:13] LABS: APPEARANCE,URINE CLEAR; BILIRUBIN,URINE NEGATIVE (NEGATIVE); COLOR,URINE YELLOW; GLUCOSE, URINE NEGATIVE (NEGATIVE); KETONES,URINE NEGATIVE (NEGATIVE); PROTEIN,URINE 30 mg/dL (NEGATIVE); URINE SPECIFIC GRAVITY 1.012; UROBILINOGEN,URINE NEGATIVE mg/dL (<2.0)
[2020-04-13] MEDS ORDERED: ACETAMINOPHEN 650 MG SUPP.RECT PR ONE (12:17)
[2020-04-13 12:18] LABS: ABSOLUTE LYMPHOCYTES# (MANUAL) 1.2 10^3/uL (0.5-4.7); ABSOLUTE MONOCYTES # (MANUAL) 0.5 10^3/uL (0.1-1.4); ANISOCYTOSIS 2+; BAND NEUTROPHILS % (MANUAL) 2 % (3-5); BASOPHILS % (MANUAL) 0 % (0-2); EOSINOPHILS % (MANUAL) 0 % (0-6); LYMPHOCYTES % (MANUAL) 12 % (13-45); MONOCYTES % (MANUAL) 5 % (3-13); PLATELET COMMENT ADEQUATE; SEGMENTED NEUTROPHILS % (MAN) 81 % (42-78); TOTAL CELLS COUNTED 100
[2020-04-13 12:19] LABS: HYPOCHROMASIA 1+; POLYCHROMASIA 1+
[2020-04-13] MEDS ORDERED: NORMAL SALINE IV ONE (12:25)
--- NOTE | 2020-04-13 12:25 | RADIOLOGY REPORT (SQ) ---
EXAM DESCRIPTION: CHEST SINGLE VIEW IMAGES COMPLETED DATE/TIME: 04/13/2020 11:40 am REASON FOR STUDY: respiratory failure COMPARISON: None. EXAM PARAMETERS: NUMBER OF VIEWS: One view. TECHNIQUE: Single frontal radiographic view of the chest acquired. RADIATION DOSE: NA LIMITATIONS: None. FINDINGS: LUNGS AND PLEURA: Diffuse, multifocal airspace opacities bilaterally. No pleural effusion . No pneumothorax. MEDIASTINUM AND HILAR STRUCTURES: No masses. Contour normal. HEART AND VASCULAR STRUCTURES: Heart normal in size. Normal vasculature. BONES: No acute findings. HARDWARE: Endotracheal tube terminates approximately 5 cm cranial to the ryan. Enteric tube termin ates subdiaphragmatically with the proximal port projecting at the level of the gastroesophageal junc tion. OTHER: No other significant finding. IMPRESSION: 1. In the appropriate clinical setting, findings are consistent with multi lobar pneumo jyoti. 2. Endotracheal tube terminates approximately 5 cm cranial to the ryan. Enteric tube proximal por t at the level of the gastroesophageal junction; consider advancing 5-10 cm. TECHNICAL DOCUMENTATION: JOB ID: [id number] [employer]- All Rights Reserved Reading location - IP/workstation name: [email or web address]
[2020-04-13] MEDS ORDERED: PIPERACILLIN/TAZOBACTAM 3.375 GM VIAL IV ONE (12:26)
--- NOTE | 2020-04-13 12:30 | ER Document Report ---
Entered by RUTH MARQUEZ SCRIBE 04/13/20 1107 Acting as scribe for:VIANEY DIAS IV, MD ED General - General Stated Complaint: UNRESPONSIVE Mode of Arrival: Stretcher Information source: Relative Notes: This 64 year old female patient with a history of hypertension, [employer]IE[employer] lymphoma currently undergoing chemotherapy, and ESRD s/p kidney transplant in 2003 presents to the ED today for evaluation of unresponsiveness that occurred just prior to arrival. [id number] at bedside reports that the patient had chemot herapy at the [facility] yesterday. She states the patient was tired last night, but was able to ambulate to bed without any assistance; however, she was unreponisve when she went to wake her up this morning. She states that they were actually en route to the hospital in [place] when she was advised to bring the patient to the closest ER. Dr. Pauline Holland in [place] is the patient's oncologist. TRAVEL OUTSIDE OF THE [place] IN LAST 30 DAYS: No - Related Data Allergies/Adverse Reactions: No Known Allergies Allergy (Verified 04/13/20 11:25) Past Medical History - General Information source: Relative, [facility] Records Cannot obtain history due to: Intubated - Social History Smoking Status: Unknown if Ever Smoked Smoking Education Provided: No Family History: Reviewed & Not Pertinent - Past Medical History Cardiac Medical History: Reports: Hx Hypertension - no medications Renal/ Medical History: Reports: Hx End Stage Renal Disease - S/P TRANSPLANT 2003 Musculoskeletal Medical History: Reports Hx Arthritis Past Surgical History: Reports: Hx Kidney (Renal Surgery) - TRANSPLANT 2003, Hx Thyroid Surgery, Hx Tubal Ligation - Immunizations Hx Diphtheria, Pertussis, Tetanus Vaccination: Yes Review of Systems - Review of Systems -: Yes ROS unobtainable due to patient's medical condition Physical Exam - Vital signs Vitals: Resp Pulse Ox 23 H 94 04/13/20 10:42 04/13/20 10:42 - General General appearance: Unresponsive - Initially, patient was unresponsive to noxious stimuli. Once placed on a NRB, she appeared to briefly open her eyes but she quickly became unresponsive again and desatted to 82%. - HEENT Head: Normocephalic, Atraumatic Eyes: Normal Pupils: PERRL Neck: Normal, Supple - Respiratory Notes: Initially, patient was unresponsive with O2 sats in the 70s on room air. Once placed on NRB, O2 sats improved to 94% and patient appeared to be protecting her airway; however, she quickly desatted to 82% and was subsequently intubated with a 7.5 ET tube. Post-intubation, breath sounds are equal, but there is some wheez ing in the left lung field and rhonchi in bilateral lung perdue. - Cardiovascular Rhythm: Regular, Tachycardia Heart sounds: Normal auscultation Murmur: No - Abdominal Inspection: Normal Distension: No distension Bowel sounds: Normal Tenderness: Nontender - Abdomen soft Organomegaly: No organomegaly - Back Back: Normal, Nontender - Extremities General upper extremity: Normal inspection General lower extremity: Normal inspection. No: Edema - Neurological [place] Coma Scale Eye Opening: None [place] Coma Scale Verbal: None Tia Coma Scale Motor: None [place] Coma Scale Total: 3 - Psychological Associated symptoms: Other - Unable to assess due to patient's medical condition - Skin Skin Temperature: Warm Skin Moisture: Dry Skin Color: Normal Course - Re-evaluation Re-evalutation: 04/13/20 14:24 Patient's blood pressure noted to suddenly drop into the 60s systolic. This MD verbally ordered a Accu-Chek to be done which revealed a fingerstick blood sugar of 58. An amp of D50 was ordered followed by infusion with the 10 W at 100 cc/h. 04/13/20 17:53 This MD was notified that the transport is here to take patient to [facility]. Patient has sedated on ventilator blood pressure is 118/102, sats 94%, heart rate 98, temp 99.9. Patient appears lionel for transfer - Vital Signs Vital signs: Temp Pulse Resp BP Pulse Ox 99.7 F 14 110/80 96 04/13/20 18:00 04/13/20 18:00 04/13/20 18:00 04/13/20 18:00 - Laboratory Results Result Diagrams: 04/13/20 10:48 04/13/20 10:48 Laboratory Results Interpreted: 04/13/20 04/13/20 04/13/20 10:48 10:48 10:48 RBC 3.02 L Hgb 9.8 L Hct 29.5 L MCV 98 H RDW 19.7 H Seg Neuts % (Manual) 81 H Band Neutrophils % 2 L Lymphocytes % (Manual) 12 L ABG pO2 ABG HCO3 ABG Total CO2 ABG O2 Saturation BUN 40 H Creatinine 1.50 H Est GFR ( Amer) 43 L Est GFR (MDRD) Non-Af 35 L Glucose 72 L POC Glucose Lactic Acid 3.5 H Calcium 7.8 L Direct Bilirubin 0.5 H AST 38 H ALT 37 H Total Protein 5.7 L Albumin 2.8 L Urine Protein Leukocyte Esterase Rfl 04/13/20 04/13/20 04/13/20 11:06 11:20 14:19 RBC Hgb Hct MCV RDW Seg Neuts % (Manual) Band Neutrophils % Lymphocytes % (Manual) ABG pO2 68.0 L ABG HCO3 25.6 H ABG Total CO2 26.9 H ABG O2 Saturation 93.8 L BUN Creatinine Est GFR ( Amer) Est GFR (MDRD) Non-Af Glucose POC Glucose 56 L Lactic Acid Calcium Direct Bilirubin AST ALT Total Protein Albumin Urine Protein 30 H Leukocyte Esterase Rfl TRACE H 04/13/20 04/13/20 04/13/20 14:47 15:08 15:51 RBC Hgb Hct MCV RDW Seg Neuts % (Manual) Band Neutrophils % Lymphocytes % (Manual) ABG pO2 ABG HCO3 ABG Total CO2 ABG O2 Saturation BUN Creatinine Est GFR ( Amer) Est GFR (MDRD) Non-Af Glucose POC Glucose 304 H 178 H Lactic Acid 2.5 H Calcium Direct Bilirubin AST ALT Total Protein Albumin Urine Protein Leukocyte Esterase Rfl 04/13/20 04/13/20 17:32 18:10 RBC Hgb Hct MCV RDW Seg Neuts % (Manual) Band Neutrophils % Lymphocytes % (Manual) ABG pO2 ABG HCO3 ABG Total CO2 ABG O2 Saturation BUN Creatinine Est GFR ( Amer) Est GFR (MDRD) Non-Af Glucose POC Glucose 124 H 118 H Lactic Acid Calcium Direct Bilirubin AST ALT Total Protein Albumin Urine Protein Leukocyte Esterase [facility] Critical Laboratory Results Reviewed: Yes Attending or Supervising Physician who Reviewed Labs: VIANEY DIAS IV - Radiology Results Critical Radiology Results Reviewed: Yes Attending or Supervising Physician who Reviewed Radiology: VIANEY DIAS IV - EKG Interpretation by Me Additional EKG results interpreted by me: 04/13/20 14:14 EKG obtained on April 13, 2020 at 1044 hrs. was interpreted by this MD. Findings: Sinus tachycardia, rate 117, normal axis, WV interval appears within normal limits, P waves preceding QRS complexes, QRS complexes appear slightly widened, QTC is 503. There are no obvious patterns of acute ST segment elevation or depression or reciprocal changes seen to suggest acute myocardial ischemia or infarction. Impression sinus tachycardia with nonspecific ST segments. - Consults Dr. Hawk Marquez, supervisor cook room, [facility] Time consulted: 13:52 - Dr. Marquez excepted the patient for transfer Reason for consultation: 04/13/20 14:26 Patient is a cancer patient receiving all of her care at [facility], including chemotherapy treatments. Patient is also followed by nephrology there Procedures - Intubation Orotracheal Time of Intubation: 10:58 Airway evaluation: Large tongue Mallampati Classification: Class 3 Medications: Etomidate, Succinylcholine Intubation method: Orotracheal Blade type: Catarino Blade size: 4 Equipment used: Glidescope ETT size: 7.5 ETT secured at: Lips ETT secured at (cm): 24 Breath Sounds after Intubation: Equal Ventilator settings: SIMV Tidal volume: 500 FiO2: 100 Respirations: 14 PEEP: 10 Post Intubation Xray: Yes Intubation Complications: No complications - Additional Procedures IV insertion Time performed: 10:48 Additional Procedures: IV insertion - Left EJ Notes: 04/13/20 14:28 Left-sided 18-gauge was inserted into the patient's left EJ with positive return of blood. IV flushes without evidence of infiltration and blood can easily be drawn from the line. Critical Care Note - Critical Care Note Total time excluding time spent on procedures (mins): 120 - Management of cancer patient with acute respiratory failure with hypoxia Discharge - Discharge Clinical Impression: Acute respiratory failure with hypoxia, Lab test negative for COVID-19 virus, Hypoglycemia Pneumonia Qualifiers: Pneumonia type: due to unspecified organism Laterality: unspecified laterality Lung location: unspecified part of lung Qualified Code(s): J18.9 - Pneumonia, unspecified organism Condition: Stable Disposition: [facility] I personally performed the services described in the documentation, reviewed and edited the documentation which was dictated to the scribe in my presence, and it accurately records my words and actions.
[2020-04-13] MEDS ORDERED: DEXTROSE 50%-WATER 25 GM/50 ML DISP.SYRIN IV ONE ×2 (14:19)
[2020-04-13] MEDS ORDERED: DEXTROSE 10%-WATER 1,000 ML IV ONE (14:22)
[2020-04-13] MEDS ORDERED: ACETAMINOPHEN 1,000 MG/100 ML RTUPB IV ONE (14:30)
[2020-04-13 18:42] VITALS: BP 110/80
--- NOTE | 2020-04-13 23:46 | EKG REPORT ---
SEVERITY:- ABNORMAL ECG - SINUS TACHYCARDIA WITH APCs AND VPC PROBABLE LEFT ATRIAL ABNORMALITY NONSPECIFIC INTRAVENTRICULAR CONDUCTION DELAY LVH WITH SECONDARY REPOLARIZATION ABNORMALITY : Confirmed by: Poonam Stiles 13-Apr-2020 23:45:32
== END 2020-04-13 18:00 | disposition short-term general hospital (02) ==
LOC: ER 10:31
DX: J18.9 Pneumonia, unspecified organism (principal); J96.01 Acute respiratory failure with hypoxia; E16.2 Hypoglycemia, unspecified; R40.4 Transient alteration of awareness; I10 Essential (primary) hypertension; C85.80 Other specified types of non-Hodgkin lymphoma, unspecified site; I12.0 Hypertensive chronic kidney disease with stage 5 chronic kidney disease or end stage renal disease; N18.6 End stage renal disease; Z20.822 Contact with and (suspected) exposure to COVID-19
CPT/HCPCS: 93005; 96376; 99291; 96361; 51702; 96375; 96365; 96367; 36415; 87040; 87086; 82962; 82803; 83605; 85025; 85610; 0202U ×23; 87077; 87088; 80053; 81001; 87150 ×26; 71045; 94660; 93010; 36600; 31500; J3490 ×2; J1170; J2060; J7030; J2543; J0131; 87186; J0330